=== PATIENT | female | born 1975 | race Caucasian/White ===

== ENCOUNTER 2021-01-13 18:28 | Emergency (ER) | payer OTHER, SELFPAY ==
[2021-01-13 19:08] VITALS: BP 181/77; PULSE 71; RESP 20; TEMP 36.5; O2SAT 98; BMI 54.5
--- NOTE | 2021-01-13 19:57 | PC.NURSE ---
MAHI WRAP APPLIED TO L ANKLE.
--- NOTE | 2021-01-13 20:05 | ED.LOWEXIN ---
HPI - Extremity Injury (Lower) General Chief Complaint: Extremity Injury, Lower Stated Complaint: leg inj Time Seen by Provider: 01/13/21 20:05 Source: patient Mode of arrival: ambulatory Limitations: no limitations History of Present Illness HPI Narrative: Patient is a 45-year-old female with no significant past medical history who presents after hopping backwards on her left foot and experiencing sudden onset of pain. Patient states she is able to gingerly ambulate and she can move her foot but with pain. Patient denies numbness or tingling. She has not tried icing and wrapping it as it just happened today. Related Data Allergies Allergy/AdvReac Type Severity Reaction Status Date / Time Heparin Analogues Allergy Unknown BLOOD Verified 01/13/21 20:16 [HEPARIN AGENTS] CLOT Penicillins [PENICILLINS] Allergy Unknown HIVES Verified 01/13/21 20:16 Review of Systems Review of Systems: Yes all other systems are reviewed and are negative PMFSH Past Medical History Medical History No known health problems Surgical History Hx of cholecystectomy Social History Social History Advance Directives: No Advance Directives Information Provided: Yes Patient : No Physical Exam Vital Signs: Vital Signs: Last Vital Signs Temp 97.7 F 01/13/21 19:08 Pulse 71 01/13/21 19:08 Resp 20 01/13/21 19:08 BP 181/77 H 01/13/21 19:08 Pulse Ox 98 01/13/21 19:08 Body Mass Index 54.5 Const: General: cooperative, healthy appearing, comfortable and no acute distress Nutritional Appearance: obese Orientation/consciousness: patient oriented x3 HENMT: Head: Yes normal to inspection Neck: Neck: Yes normal visual inspection, Yes full ROM and Yes supple Resp: Effort & Inspection: normal respiratory effort and able to speak in complete sentences Neuro: General: patient oriented x3 Extrem: Other: Left foot and ankle NVI, able to flex and extend with pain, patient unable to perform Faust test as her leg kept cramping up, good pedal pulses, no edema, no signs of infection noted General: No no calf tenderness Course Course Course Narrative: 45-year-old female who hospice back at the gym and injured her left calf. It was ambulate gingerly and flex and extend foot however with pain. Will wrap send instructions for RICE and the follow-up with ortho if pain not improving. Will also give crutches for support while ambulating, patient requested crutches over the walker. Patient's blood pressure was elevated upon arrival, recheck was 156/93 likely secondary to pain. Will discharge Discharge Plan Discharge Clinical Impression: Achilles tendinitis, left leg Patient Disposition: Home, Self-Care Instructions: Achilles Tendinitis (ED) Additional Instructions: Please use crutches until you are able to fully bear weight. Please wrap, ice and rest your Achilles tendon. As discussed, if the pain does not improve a little bit each day, please follow-up with orthopedics, I have attached their information to your discharge information. Referrals: Taryn Goodman MD [Physician] - 1 week Interventions: ED Discharge Assessment Last Done: 01/13/21 20:35 Discharge Date/Time: 01/13/21 20:49
== END 2021-01-13 20:49 | disposition home or self-care (01) ==
PROVIDERS: Emergency Provider Internal Medicine; PCP Family Medicine
DX: M76.62 Achilles tendinitis, left leg (principal)
CPT/HCPCS: 99283; 99284

== ENCOUNTER → 2021-01-22 08:06 | Outpatient (BNVA) | payer OTHER, SELFPAY | PROVIDERS: PCP Family Medicine; Visit Provider Physician Assistant ==

== ENCOUNTER → 2021-01-28 07:25 | Outpatient (BNVA) | payer OTHER, SELFPAY | PROVIDERS: PCP Family Medicine; Visit Provider Surgery ==

== ENCOUNTER 2021-01-29 10:19 | Outpatient (REF) | payer OTHER, SELFPAY ==
--- NOTE | ~2021-01-29 | XR_ITS ---
EXAMINATION: XR CHEST 2 VIEWS CLINICAL INFORMATION: Sleep apnea. COMPARISON: None. TECHNIQUE: Frontal and lateral views of the chest were obtained. FINDINGS: The heart, great vessels, pulmonary vasculature and mediastinum are normal. The lungs show no focal infiltrate, effusion or pneumothorax. There is no acute osseous abnormality. XR/XR chest 2V IMPRESSION: No active cardiopulmonary disease.
--- NOTE | 2021-01-29 10:24 | ECG_ITS ---
Test Reason : SLEEP APNEA Blood Pressure : / mmHG Vent. Rate : 067 BPM Atrial Rate : 067 BPM P-R Int : 148 ms QRS Dur : 094 ms QT Int : 414 ms P-R-T Axes : 026 -06 037 degrees QTc Int : 437 ms Normal sinus rhythm Normal ECG No previous ECGs available Referred By: Ezio Erwin Electronically Signed By:RJ FAGAN
[2021-01-29 11:42] LABS: MANUAL DIFF FLAG NO
[2021-01-29 11:51] LABS: Basophils Percent Auto 0.5 % (0-2); Eosinophils Absolute Auto 0.1 X10*3/uL (0.0-0.4); Eosinophils Percent Auto 2.1 % (0-4); Hematocrit 39.5 % (37-47); Hemoglobin 12.9 g/dl (12.0-16.0); Imm Gran Abs Auto 0.01 X10*3/uL (0.00-0.03); Imm Gran Pct Auto 0.2 % (0.0-0.4); Lymphocytes Absolute Auto 1.8 X10*3/uL (1.2-4.9); Lymphocytes Percent Auto 30.1 % (20-40); Mean Corpuscular HGB Conc 32.7 g/dl (31.0-35.0); Mean Corpuscular Hemoglobin 28.4 pg (27.0-33.0); Monocytes Absolute Auto 0.5 X10*3/uL (0.1-1.2); Monocytes Percent Auto 8.5 % (2-11); Neutrophils Absolute Auto 3.4 X10*3/uL (2.0-8.3); Neutrophils Percent Auto 58.6 % (45-73); Platelet Count 308 X10*3/uL (160-400); Red Blood Count 4.54 X10*6/uL (4.20-5.50); Red Cell Distribution Width 13.5 % (11.0-16.0); White Blood Count 5.9 X10*3/uL (4.8-10.8)
[2021-01-29 11:58] LABS: Estimated Average Glucose 105 mg/dL; Hemoglobin A1c % 5.3 %
[2021-01-29 12:10] LABS: Alanine Aminotransferase 23 U/L (0-31); Albumin Level 4.2 g/dL (3.5-5.0); Alkaline Phosphatase 55 U/L (39-117); Anion Gap 12 (12-20); Aspartate Amino Transferase 22 U/L (5-31); Bilirubin Total 0.5 mg/dL (0.0-1.0); Blood Urea Nitrogen 11 mg/dL (9-16); C Reactive Protein 0.61 mg/dL (< or = 0.50); Calcium 9.1 mg/dL (8.4-10.2); Carbon Dioxide 26 mmol/L (22-29); Chloride 107 mmol/L (96-108); Cholesterol 161 mg/dL; Estimated Glomerular Filt Rate > 60; Glucose Random 86 mg/dL (60-115); HDL Cholesterol 39 mg/dL; Iron 116 mcg/dL (30-160); LDL Cholesterol Calculated 105 mg/dl; Percent Iron Saturation 34 % (15-50); Potassium 4.3 mmol/L (3.3-5.1); Sodium 141 mmol/L (135-145); Total Iron Binding Capacity 343 mcg/dL (228-428); Total Protein 7.3 g/dL (6.5-8.0); Triglycerides 88 mg/dL; Unsaturated Iron Binding 227 ug/dL
[2021-01-29 12:33] LABS: Ferritin 126 ng/mL (10-250); TSH reflex Free T4 1.76 uIU/mL (0.32-4.0); Vitamin D 25-OH Total 43.1 ng/mL (>30)
[2021-01-29 12:52] LABS: Folate 15.8 ng/mL (> or = 4.0); Vitamin B12 309 pg/mL (200-900)
[2021-01-30 07:07] LABS: Insulin Level Total 31.3 uIU/mL
[2021-01-31 10:36] LABS: Calcium (PTHI) 9.2 mg/dL (8.6-10.2); PTHI 48 pg/mL (14-64)
[2021-01-31 16:41] LABS: Zinc 67 mcg/dL (60-130)
[2021-02-03 10:17] LABS: Vitamin A 47 mcg/dL (38-98)
[2021-02-03 15:12] LABS: Vitamin B1 10 nmol/L (8-30)
== END 2021-01-29 10:20 | disposition home or self-care (01) ==
LOC: HO.XRAY 10:19
PROVIDERS: PCP Family Medicine; Visit Provider Surgery
DX: E66.01 Morbid (severe) obesity due to excess calories (principal); G47.30 Sleep apnea, unspecified
CPT/HCPCS: 36415; 71046; 80053; 80061; 82306; 82607; 82728; 82746; 83036; 83525; 83540; 83970; 84425; 84443; 84590; 84630; 85025; 86140; 93005

== ENCOUNTER 2021-02-03 08:06 | Outpatient (REF) | payer OTHER, SELFPAY ==
[2021-02-05 13:46] LABS: H Pylori Breath Test NOT DETECTED (NOT DETECTED)
== END 2021-02-03 08:07 | disposition home or self-care (01) ==
LOC: HO.LNP 08:06
PROVIDERS: Surgery; PCP Family Medicine; Visit Provider Physician Assistant
DX: G47.30 Sleep apnea, unspecified (principal); E66.01 Morbid (severe) obesity due to excess calories
CPT/HCPCS: 83013

== ENCOUNTER → 2021-02-17 07:28 | Outpatient (BNVA) | payer OTHER, SELFPAY | PROVIDERS: PCP Family Medicine; Visit Provider Surgery ==

== ENCOUNTER 2021-02-18 09:21 | Outpatient (REF) | payer OTHER, SELFPAY ==
--- NOTE | ~2021-02-18 | FL_ITS ---
EXAMINATION: XR GI SERIES CLINICAL INFORMATION: Obesity COMPARISON: None TECHNIQUE: Upper GI was performed using thin and thick barium and effervescent granules. FINDINGS: Esophageal motility is normal. No hernia or reflux is seen. Stomach is normal-appearing. No fold thickening, mass, ulcer or stricture is seen. FLUOROSCOPY TIME: 0.7 minutes DOSE AREA PRODUCT: 10 comer per centimeter squared. Total dose 42 mgy. 18 saved fluoroscopic images.) FL/FL upper GI series IMPRESSION: Unremarkable examination.
--- NOTE | ~2021-02-18 | US_ITS ---
EXAMINATION: US COMPLETE ABDOMEN WITH LIVER ELASTOGRAPHY CLINICAL INFORMATION: Obesity COMPARISON: Previous CT of the abdomen and pelvis January 2012. TECHNIQUE: Real-time imaging of the abdominal viscera. Noninvasive ultrasound liver fibrosis assessment is performed using Kieran ElastPQ point quantification shear wave elastography (pSWE) with a C5-2 MHz transducer. Multiple elastography samples are obtained. FINDINGS: PANCREAS: The visualized pancreatic head and body are normal in appearance. The remainder of the pancreas is obscured from visualization by the overlying bowel gas. ABDOMINAL AORTA: The proximal and distal aortic segments are normal in caliber. The mid abdominal aorta is not well visualized due to bowel gas. INFERIOR VENA CAVA: Visualized portions are normal. LIVER: Liver echotexture is increased. The liver demonstrates normal size and contour. No focal lesion or intrahepatic biliary duct dilatation. The right lobe measures 16 cm in length. The left lobe measures 10 cm in length. Portal flow is normal/hepatopedal Shear wave liver elastography median stiffness is 1.6 m/s (reference: normal median stiffness is 1.3 m/s or less). IQR/median stiffness to assess sampling precision is 0.2 (reference: good quality data set is IQR/median stiffness of 0.15 or less). GALLBLADDER: Surgically removed. COMMON BILE DUCT: Normal in caliber measuring 0.6 cm in diameter. RIGHT KIDNEY: Normal. No hydronephrosis. No renal calculi or focal parenchymal lesions. The kidney measures 12 cm in maximum dimension. LEFT KIDNEY: Normal. No hydronephrosis. No renal calculi or focal parenchymal lesions. The kidney measures 12 cm in maximum dimension. SPLEEN: Normal. The spleen measures 10.7 cm in maximum dimension. FREE FLUID: None. US/US abdomen comp w elastography IMPRESSION: 1. Impression: Echogenic liver. Limited visualization of the pancreas and aorta. 2. Liver elastography: Slightly limited due to sampling error. In the absence of other known clinical signs, rules out compensated advanced chronic liver disease. REFERENCE: Society of Radiologists in Ultrasound Liver Stiffness Thresholds (2020): LIVER STIFFNESS THRESHOLDS: *Liver Stiffness equal or less than 1.3 m/s: High probability of being normal. *Liver Stiffness less than 1.7 m/s: In the absence of other known clinical signs, rules out compensated advanced chronic liver disease. *Liver Stiffness 1.7-2.1 m/s: Suggestive of compensated advanced chronic liver disease but need further test for confirmation. *Liver Stiffness over 2.1 m/s: Rules in compensated advanced chronic liver disease. *Liver Stiffness over 2.4 m/s: Suggestive of clinically significant portal hypertension. QUALITY OF DATA SET: *IQR/Median value equal or less than 0.15 implies a quality data set. *IQR/Median value over 0.15 implies a poor quality data set. SIGNIFICANT CHANGE FROM PRIOR EXAM: Significant change if liver stiffness measurement is 10% or greater from prior exam. OTHER CONSIDERATIONS: The stage of liver fibrosis may be overestimated in the setting of acute hepatitis, liver inflammation, elevated liver function tests, hepatic vascular congestion, obstructive cholestasis, non-fasting state, and infiltrative diseases such as amyloidosis and lymphoma. In some patients with NAFLD, the liver stiffness thresholds for compensated advanced chronic liver disease may be lower. In causes other than viral hepatitis and NAFLD, liver stiffness thresholds are not well established.
== END 2021-02-18 09:22 | disposition home or self-care (01) ==
LOC: HO.US 09:21
PROVIDERS: Visit Provider Surgery
DX: Z01.818 Encounter for other preprocedural examination (principal); E66.01 Morbid (severe) obesity due to excess calories; K21.9 Gastro-esophageal reflux disease without esophagitis; G47.30 Sleep apnea, unspecified
CPT/HCPCS: 74240; 76705; 76981

== ENCOUNTER → 2021-02-23 08:10 | Outpatient (BNVA) | payer OTHER, SELFPAY | PROVIDERS: PCP Family Medicine; Visit Provider Dietitian, Registered | DX: E66.01 Morbid (severe) obesity due to excess calories (principal); Z68.43 Body mass index [BMI] 50.0-59.9, adult | CPT/HCPCS: 97802 ==

== ENCOUNTER → 2021-03-27 07:31 | Outpatient (BNVA) | payer OTHER, SELFPAY | PROVIDERS: PCP Family Medicine; Visit Provider Surgery ==

== ENCOUNTER → 2021-04-24 13:24 | Outpatient (BNVA) | payer OTHER, SELFPAY | PROVIDERS: PCP Family Medicine; Visit Provider Physician Assistant ==

== ENCOUNTER → 2021-05-04 07:09 | Outpatient (BNVA) | payer OTHER, SELFPAY | PROVIDERS: PCP Family Medicine; Visit Provider Surgery ==

== ENCOUNTER 2021-05-12 06:13 | Inpatient (IN) | payer OTHER, SELFPAY ==
[2021-05-01 10:13] VITALS: BMI 49.5
--- NOTE | 2021-05-04 13:24 | HO.ANESPROP2 ---
HPI - Anesthesia Eval Consult details Narrative: 46 yo female patient for EGD, Sleeve gastrectomy PMFSH Active Problems Active Problems: All Active Problems (Updated 05/01/21 @ 10:09 by Charisse Rasmussen RN) Obesity (Acute) Vitamin B12 deficiency (Acute) MDD (major depressive disorder), recurrent episode, mild (Acute) Steatosis, liver (Acute) Knee pain (Acute) Sleep apnea with use of continuous positive airway pressure (CPAP) (Acute) Morbid obesity (Acute) Past Medical History Medical History Anemia COVID-19 vaccine series completed Depression Hx pulmonary embolism Jaw anomaly Knee pain Morbid obesity PCOS (polycystic ovarian syndrome) Sleep apnea with use of continuous positive airway pressure (CPAP) Steatosis, liver Family History Family History (Updated 01/22/21 @ 08:30 by LUCILA Forde) Mother No problems noted. Father Diabetes Hypertension Hyperlipidemia Sister No problems noted. Sister No problems noted. Sister No problems noted. Sister Acute Crohn's disease Sister No problems noted. Family history of problems with anesthesia: No Surgical History Surgical History (Updated 05/04/21 @ 13:28 by Charisse Rasmussen RN) History of inferior vena caval filter placement History of mandibular surgery Hx of cholecystectomy Hx of colonoscopy Hx of excision of mass Hx of oral surgery History of Problems with Anesthesia: Yes (H/o awake fiberoptic intubations in the past. States not for recent sugeries. Will obtain anesthesia records for recent surgeries) Social History Social History (Updated 01/22/21 @ 08:31 by LUCILA Forde) Are you a primary palliative care coordinator to a significant other at home: No Do you presently have visiting nurse or other home services: No Alcohol intake: current Alcohol intake frequency: does not drink Patient Tobacco Use Status: Never used Tobacco Meds Allergies Allergy/AdvReac Type Severity Reaction Status Date / Time Heparin Analogues Allergy Severe patient Verified 05/04/21 12:48 [HEPARIN AGENTS] states was told heparin caused a blood clot Penicillins [PENICILLINS] Allergy Intermediate HIVES Verified 05/04/21 12:48 Home Medications Medication Instructions Recorded Confirmed Last Taken Type citalopram 20 mg tablet 20 mg PO DAILY 01/22/21 05/04/21 Unknown History norethindrone acetate 5 mg tablet 5 mg PO BEDTIME 01/22/21 05/04/21 Unknown History cetirizine 10 mg capsule (Zyrtec) 10 mg PO DAILY 01/28/21 05/04/21 Unknown History cholecalciferol (vitamin D3) 10 10 mcg PO DAILY 01/28/21 05/04/21 Unknown History mcg (400 unit) tablet docusate sodium 100 mg capsule 100 mg PO DAILY 01/28/21 05/04/21 Unknown History (Stool Softener) magnesium 200 mg tablet 200 mg PO DAILY 01/28/21 05/04/21 Unknown History mecobalamin (vitamin B12) 5,000 5,000 mcg PO DAILY 01/28/21 05/04/21 Unknown History mcg lozenge Exam Exam Date and Time: May 04, 2021 132 Height,Weight and Vital Signs: Height 5 ft 10 in Weight 156.489 kg Narrative Narrative: Several jaw surgeries, metal plate in jaw, s/p tracheostomy tube, slight deviation of oral cavity to one side, minimal limitation of jaw movement, ?? abnormal anatomy Airway Mallampati Class: III TM Dist: >3cm Neck ROM: Full Denture: Lower Heart: RRR Lungs: CTAB Assessment and Plan Assessment Anesthesia Assessment: Anesthesia Plan Discussed and Chart Reviewed Final Anesthetic Review Family History of Problems with Anesthesia: No History of Problems with Anesthesia: Yes (H/o awake fiberoptic intubations in the past. States not for recent sugeries. Will obtain anesthesia records for recent surgeries) ASA Class: III Patient Risk: Intermediate Procedure Risk: Intermediate Assessment/Block/Sedation in SS: Assess/Block/Sedation-SS Anesthetic Plan Anesthetic Plan: GA Disposition: Standard PACU and Inp. Admit - Standard Bed
[2021-05-06 08:42] LABS: MANUAL DIFF FLAG NO
[2021-05-06 08:48] LABS: Basophils Percent Auto 0.5 % (0-2); Eosinophils Absolute Auto 0.2 X10*3/uL (0.0-0.4); Eosinophils Percent Auto 2.3 % (0-4); Hematocrit 42.1 % (37-47); Hemoglobin 14.2 g/dl (12.0-16.0); Imm Gran Abs Auto 0.01 X10*3/uL (0.00-0.03); Imm Gran Pct Auto 0.2 % (0.0-0.4); Lymphocytes Absolute Auto 1.4 X10*3/uL (1.2-4.9); Mean Corpuscular HGB Conc 33.7 g/dl (31.0-35.0); Mean Corpuscular Hemoglobin 28.8 pg (27.0-33.0); Mean Corpuscular Volume 85.4 fL (80-98); Mean Platelet Volume 10.4 fL (9.4-12.3); Monocytes Absolute Auto 0.5 X10*3/uL (0.1-1.2); Monocytes Percent Auto 8.1 % (2-11); Neutrophils Absolute Auto 4.3 X10*3/uL (2.0-8.3); Neutrophils Percent Auto 66.9 % (45-73); Platelet Count 306 X10*3/uL (160-400); Red Blood Count 4.93 X10*6/uL (4.20-5.50); Red Cell Distribution Width 12.9 % (11.0-16.0); White Blood Count 6.4 X10*3/uL (4.8-10.8)
[2021-05-06 08:50] LABS: INTERNATIONAL NORM RATIO 1.2 (0.9-1.1); Prothrombin Time 13.7 SEC (9.9-13.0)
[2021-05-06 08:53] LABS: Partial Thromboplastin Time 32.9 SEC (24.1-38.0)
[2021-05-06 09:04] LABS: Alanine Aminotransferase 32 U/L (0-31); Albumin Level 4.4 g/dL (3.5-5.0); Alkaline Phosphatase 73 U/L (39-117); Anion Gap 13 (12-20); Aspartate Amino Transferase 24 U/L (5-31); Bilirubin Total 0.8 mg/dL (0.0-1.0); Blood Urea Nitrogen 12 mg/dL (9-16); C Reactive Protein 0.64 mg/dL (< or = 0.50); Calcium 9.7 mg/dL (8.4-10.2); Carbon Dioxide 25 mmol/L (22-29); Chloride 105 mmol/L (96-108); Cholesterol 162 mg/dL; Creatinine Clr Calc Pharmacy 138.4; Estimated Glomerular Filt Rate > 60; Glucose Random 99 mg/dL (60-115); HDL Cholesterol 34 mg/dL; LDL Cholesterol Calculated 110 mg/dl; Sodium 139 mmol/L (135-145); Total Protein 7.9 g/dL (6.5-8.0); Triglycerides 90 mg/dL
[2021-05-06 09:07] LABS: Estimated Average Glucose 97 mg/dL
[2021-05-06 09:26] LABS: TSH reflex Free T4 1.29 uIU/mL (0.32-4.0)
[2021-05-07 09:26] LABS: Insulin Level Total 32.4 uIU/mL
--- NOTE | 2021-05-11 23:18 | MHC.SHP ---
Pre-Procedural Eval Section A Date of Service: 05/11/21 The patient is an INPATIENT: Yes The History & Physical has been completed within 30 days and I have reviewed it.: Yes Section B Chief Complaint: morbid obesity Relevant Family History (Specify if Yes): No Relevant Social History: None Present Medications: see Short Stay Collaborative assessment Medical History: No relevant PMH History of Previous Operations: No relevant previous surgery Allergies: Allergies Allergy/AdvReac Type Severity Reaction Status Date / Time Heparin Analogues Allergy Severe patient Verified 05/04/21 12:48 [HEPARIN AGENTS] states was told heparin caused a blood clot Penicillins [PENICILLINS] Allergy Intermediate HIVES Verified 05/04/21 12:48 Review of Systems Sugical H&P ROS: Negative: Constitution, Cardiovascular, Respiratory, Neurological, Psychiatric, Hem-Onc, Allergic/Immunologic, Gastrointestinal, Genitourinary, Musculoskeletal, Integumentary, Endocrine and Eyes/Ears/Nose/Throat Exam Surgical H&P Exam: Normal: HEENT, Normal: Heart, Normal: Lungs, Normal: Extremities, Normal: Abdomen, Normal: Skin and Normal: Neurological Plan Diagnosis/Plan: Unchanged I have reviewed the history and physical and performed a pertinent physical examination on my patient. No changes have occurred unless specified.
[2021-05-12] VITALS (16 sets, daily range): BP systolic 119–151; BP diastolic 63–88; PULSE 53–79; RESP 16–18; TEMP 36.1–36.6; O2SAT 93–98
[2021-05-12 06:38] LABS: UPreg QC Valid YES; Urine Pregnancy NEGATIVE (NEGATIVE)
[2021-05-12 06:49] LABS: COVID-19 Test Negative (Negative); IDNOW Serial# 9DD0AD1C
[2021-05-12] MEDS: Lactated Ringers 1,000 ML 999 ML IV (06:49)
[2021-05-12] MEDS: Lactated Ringers 1,000 ML 100 ML IVCONT (06:49)
[2021-05-12] MEDS: levoFLOXacin/D5W 500 MG/100 ML PIGGYBACK 100 MG IV (06:50)
--- NOTE | 2021-05-12 07:24 | P.CONAN_ITS ---
[facility] Active Problems Active Problems: All Active Problems (Updated 05/01/21 @ 10:09 by Charisse aguillon RN) Obesity (Acute) Vitamin B12 deficiency (Acute) MDD (major depressive disorder), recurrent episode, mild (Acute) Steatosis, liver (Acute) Knee pain (Acute) Sleep apnea with use of continuous positive airway pressure (CPAP) (Acute) Morbid obesity (Acute) Past Medical History Medical History Anemia COVID-19 vaccine series completed Depression Hx pulmonary embolism Jaw anomaly Knee pain Morbid obesity PCOS (polycystic ovarian syndrome) Sleep apnea with use of continuous positive airway pressure (CPAP) Steatosis, liver Family History Family History (Updated 01/22/21 @ 08:30 by LUCILA Forde) Mother No problems noted. Father Diabetes Hypertension Hyperlipidemia Sister No problems noted. Sister No problems noted. Sister No problems noted. Sister Acute Crohn's disease Sister No problems noted. Family history of problems with anesthesia: No Surgical History Surgical History (Updated 05/04/21 @ 13:28 by Charisse Rasmussen RN) History of inferior vena caval filter placement History of mandibular surgery Hx of cholecystectomy Hx of colonoscopy Hx of excision of mass Hx of oral surgery History of Problems with Anesthesia: Yes (H/o awake fiberoptic intubations in the past. States not for recent sugeries. Will obtain anesthesia records for recent surgeries) Social History Social History (Updated 01/22/21 @ 08:31 by LUCILA Forde) Are you a primary director of home care hospice to a significant other at home: No Do you presently have visiting nurse or other home services: No Alcohol intake: current Alcohol intake frequency: does not drink Patient Tobacco Use Status: Never used Tobacco Use of substances other than those prescribed or required for medical reasons: Yes Substance Use Frequency: Daily Have you been hit, kicked, punched, or otherwise hurt by someone within the past year? If so, by whom?: No Are you DNR?: No Advance Directives: No Advance Directives Information Provided: Yes (states does not have a HCP-is ) Advance Directives on File: No Recently lost weight without trying: No Eating poorly because of decreased appetite: No Nutrition Risks: No Nutritional Risk Patient : No FDLMP: N/A-takes BCP daily : No Poor oral hygiene: No (lower full implants) Meds Allergies Allergy/AdvReac Type Severity Reaction Status Date / Time Heparin Analogues Allergy Severe patient Verified 05/04/21 12:48 [HEPARIN AGENTS] states was told heparin caused a blood clot Penicillins [PENICILLINS] Allergy Intermediate HIVES Verified 05/04/21 12:48 Home Medications Medication Instructions Recorded Confirmed Last Taken Type citalopram 20 mg tablet 20 mg PO DAILY 01/22/21 05/04/21 05/12/21 History norethindrone acetate 5 mg tablet 5 mg PO BEDTIME 01/22/21 05/04/21 Unknown History cetirizine 10 mg capsule (Zyrtec) 10 mg PO DAILY 01/28/21 05/04/21 Unknown History cholecalciferol (vitamin D3) 10 10 mcg PO DAILY 01/28/21 05/04/21 Unknown History mcg (400 unit) tablet docusate sodium 100 mg capsule 100 mg PO DAILY 01/28/21 05/04/21 Unknown History (Stool Softener) magnesium 200 mg tablet 200 mg PO DAILY 01/28/21 05/04/21 Unknown History Exam Exam Date and Time: May 12, 2021 0724 Height,Weight and Vital Signs: Height 5 ft 10 in Weight 156.489 kg Last Vital Signs Temp 98 F 05/12/21 06:27 Pulse 74 05/12/21 06:27 Resp 18 05/12/21 06:27 BP 151/88 H 05/12/21 06:27 Pulse Ox 95 05/12/21 06:27 Pertinent Lab Results Pertinent Lab Results: Laboratory Tests 05/06/21 05/06/21 05/06/21 08:25 08:25 08:25 WBC 6.4 RBC 4.93 Hgb 14.2 Hct 42.1 MCV 85.4 MCH 28.8 MCHC 33.7 RDW 12.9 Plt Count 306 MPV 10.4 Immature Gran % (Auto) 0.2 Neut % (Auto) 66.9 Lymph % (Auto) 22.0 Campbell % (Auto) 8.1 Eos % (Auto) 2.3 Baso % (Auto) 0.5 Lymph # (Auto) 1.4 Campbell # (Auto) 0.5 Eos # (Auto) 0.2 Baso # (Auto) 0.0 Abs Immat Gran (auto) 0.01 Absolute Neuts (auto) 4.3 Absolute Nucleated RBC 0.000 Nucleated RBC % (auto) 0.0 PT 13.7 H INR 1.2 H APTT 32.9 Sodium 139 Potassium 4.0 Chloride 105 Carbon Dioxide 25 Anion Gap 13 BUN 12 Creatinine 0.84 Estim Creat Clear Calc 138.4 Estimated GFR > 60 Random Glucose 99 Estimat Average Glucose Hemoglobin A1c % Total Insulin Calcium 9.7 D Total Bilirubin 0.8 AST 24 ALT 32 H Alkaline Phosphatase 73 D C-Reactive Protein 0.64 H Total Protein 7.9 Albumin 4.4 Triglycerides 90 Cholesterol 162 LDL Cholesterol, Calc 110 HDL Cholesterol 34 TSH 1.29 Urine Test COVID-19 ([facility]) COVID-19 [facility] Blood Type Antibody Screen 05/06/21 05/06/21 05/06/21 08:25 08:25 08:25 WBC RBC Hgb Hct MCV MCH MCHC RDW Plt Count MPV Immature Gran % (Auto) Neut % (Auto) Lymph % (Auto) Campbell % (Auto) Eos % (Auto) Baso % (Auto) Lymph # (Auto) Campbell # (Auto) Eos # (Auto) Baso # (Auto) Abs Immat Gran (auto) Absolute Neuts (auto) Absolute Nucleated RBC Nucleated RBC % (auto) PT INR APTT Sodium Potassium Chloride Carbon Dioxide Anion Gap BUN Creatinine Estim Creat Clear Calc Estimated GFR Random Glucose Estimat Average Glucose 97 Hemoglobin A1c % 5.0 Total Insulin 32.4 H Calcium Total Bilirubin AST ALT Alkaline Phosphatase C-Reactive Protein Total Protein Albumin Triglycerides Cholesterol LDL Cholesterol, Calc HDL Cholesterol TSH Urine Test COVID-19 ([facility]) COVID-19 [facility] Blood Type B Positive Antibody Screen NEGATIVE 05/12/21 05/12/21 06:08 06:08 WBC RBC Hgb Hct MCV MCH MCHC RDW Plt Count MPV Immature Gran % (Auto) Neut % (Auto) Lymph % (Auto) Campbell % (Auto) Eos % (Auto) Baso % (Auto) Lymph # (Auto) Campbell # (Auto) Eos # (Auto) Baso # (Auto) Abs Immat Gran (auto) Absolute Neuts (auto) Absolute Nucleated RBC Nucleated RBC % (auto) PT INR APTT Sodium Potassium Chloride Carbon Dioxide Anion Gap BUN Creatinine Estim Creat Clear Calc Estimated GFR Random Glucose Estimat Average Glucose Hemoglobin A1c % Total Insulin Calcium Total Bilirubin AST ALT Alkaline Phosphatase C-Reactive Protein Total Protein Albumin Triglycerides Cholesterol LDL Cholesterol, Calc HDL Cholesterol TSH Urine Test NEGATIVE COVID-19 ([facility]QUELIN) Negative COVID-19 Clin Com See Note Blood Type Antibody Screen Airway Mallampati Class: III (Small mouth; jaw opens asymmetrically) TM Dist: >3cm Neck ROM: Full Denture: Lower Loose/Missing/Broken Teeth: Yes and Lower (Posts lower jaw onto which lower denture snaps) Heart: RRR Lungs: CTA Assessment and Plan Assessment Anesthesia Assessment: Anesthesia Plan Discussed and Chart Reviewed Final Anesthetic Review Family History of Problems with Anesthesia: No History of Problems with Anesthesia: Yes (H/o awake fiberoptic intubations in the past. States not for recent sugeries. Will obtain anesthesia records for recent surgeries) NPO: Yes ASA Class: III Final Preanesthetic Review: Meds/Allgs Chart Reviewed, Consent Obtained/Reviewed and Anes Risks/Benef Reviewed Patient Risk: Intermediate Procedure Risk: Intermediate Anesthetic Plan Anesthetic Plan: GA Disposition: Standard PACU
--- NOTE | 2021-05-12 10:00 | P.DS_ITS ---
DS: Providers Provider Date of Service: 05/13/21 Date of admission: 05/12/21 06:13 Primary care physician: Fausto Smith MD DS: Summary Hospital Course Hospital Course: ADMITTING DIAGNOSIS: morbid obesity, PCOS, JAKE, history of PE DISCHARGE DIAGNOSIS: same, s/p laparoscopic sleeve gastrectomy and repair diaphragmatic hernia PAST SURGICAL HISTORY: lap britton, mandibular surgery PROCEDURE: upper endoscopy, laparoscopic sleeve gastrectomy DISCHARGE SUMMARY: History of Present Illness: The patient is a 46 year-old woman with a BMI of 58.6 kg/m2 and associated co- morbidities as described above. The patient had extensive work-up,lost 50.4 lbs preoperatively and was electively scheduled for laparoscopic, possible open sleeve gastrectomy and gastropexy. Risks and complications of the surgery were discussed with the patient in advance, particularly the possibility of , pulmonary embolism, anastomotic leak, bleeding, bowel injury, GERD, cardiac, r enal or pulmonary complications. The patient understood all the risks and was in agreement with the surgical plan. Hospital Course: The patient underwent an uneventful laparoscopic sleeve gastrectomy with gastropexy on the day of admission. Postoperatively, the patient was transferred to the surgical floor. The patient received IV Acetaminophen and IV dilaudid for pain control. Patient was started on bariatric phase 1 diet POD #0. On postoperative day one, the patient was feeling well without nausea, vomiting, fevers, or tachycardia. The patient had some mild incisional pain and the abdomen was soft. On the morning of postoperative day one, the patient was continued on 1 ounce of water or ice every half hour. During the day, the patient did fairly well, having some incisional pain, but able to ambulate adequately and to tolerate liquids well. Since the patient is doing well, we decided that the patient was ready to be discharged. The patient was given instructions to follow-up with me next week and to call my office for any fever over 101, persistent abdominal pain, nausea, vomiting, GERD, symptoms of DVT such as calf tenderness, or leg swelling, or pulmonary embolism such as chest pain or shortness of breath. The patient was also instructed to drink 40-60 ounces of liquids per day using the 1-ounce cups. The patient had been given prescriptions for Tylenol for pain, Zofran prn for nausea, and pantoprazole and carafate previously. The patient was encouraged to ambulate and use the incentive spirometer. The patient was allowed to shower, but no baths, and encouraged to stay active at home. All of these instructions were given to the patient personally. All questions were answered and the patient understood all instructions, the instructions were also given to the patient in print. Time Spent with Patient Time attestation: Total time spent providing and/or coordinating discharge services: Discharge coordination time: Less than 30 minutes Quality: Stroke Does the patient have a stroke diagnosis?: No Physical Exam Vital Signs: Vital Signs: Last Vital Signs Temp 98 F 05/12/21 06:27 Pulse 74 05/12/21 06:27 Resp 18 05/12/21 06:27 BP 151/88 H 05/12/21 06:27 Pulse Ox 95 05/12/21 06:27 Body Mass Index 49.5 DS: Data Data Completed and Pending Pending studies at discharge: Pending at discharge 05/12/21 09:06 Surgical [PTH] Routine Labs on day of discharge: Laboratory Results - last 24 hr 05/12/21 05/12/21 06:08 06:08 Urine Test NEGATIVE COVID-19 (JAQUELIN) Negative COVID-19 Clin Com See Note Discharge Plan Discharge Anticipated Discharge Date/Time: 05/13/21 10:58 Patient Disposition: Home, Self-Care Discharge Diagnosis: s/p sleeve gastrectomy Referrals: Fausto Smith MD [Primary Care Provider] - 1 Week Discharge Medications: Continued citalopram 20 mg tablet 20 mg PO DAILY RF: 0 pantoprazole 40 mg tablet,delayed release (DR/EC) 40 mg PO DAILY Qty: 30 RF: 2 sucralfate 100 mg/mL suspension 10 ml PO BID Qty: 400 RF: 2 ondansetron HCl [Zofran] 4 mg tablet 4 mg PO Q12H Qty: 20 RF: 0 Zyrtec 10 mg capsule 10 mg PO DAILY RF: 0 docusate sodium [Stool Softener] 100 mg capsule 100 mg PO DAILY RF: 0 Held norethindrone acetate 5 mg tablet 5 mg PO BEDTIME RF: 0 Hold Instructions: Discuss when to restart with Dr Erwin Discontinued mecobalamin (vitamin B12) 1,000 mcg tablet,disintegrating 1,000 mcg sublingual DAILY Qty: 30 RF: 2 magnesium 200 mg tablet 200 mg PO DAILY RF: 0 cholecalciferol (vitamin D3) 10 mcg (400 unit) tablet 10 mcg PO DAILY RF: 0 Discharge Orders: Discharge Order (Routine); Ordered 05/13/21 Ordered By: Ezio Erwin Diet: other Activity on Discharge: No heavy lifting Stand Alone Forms: Patient Portal Discharge page Care Plan Goals: weight loss Health Concerns: morbid obesity Plan of Treatment: No tub baths, sex or returning to work until discussed at first post op appointment. No exercise, alcohol, tobacco or illegal drug use. Continue to use incentive spirometer hourly while awake. Walk in home for 5- 10 minutes every 2 hours during the first week. Continue phase 1 diet today and start phase 2 diet tomorrow morning. Follow all instructions in the bariatric handbook and call with any questions. The patient's medical history has been reviewed and they are considered low risk for post op DVT and therefore DVT prophylaxis is not considered necessary. Travel after surgery was reviewed. The patient has not disclosed any travel plans during the first 30 days after surgery and they have been advised that within the first 30 days after surgery any bus, plane, train or car travel over 2 hours in duration is contraindicated due to the possibility of developing blood clots from immobility. Any travel, needs to include periods of ambulation of 10 minutes in duration every 2 hours. The patient was instructed to discuss any plans for travel during this period with their bariatric surgeon. Assessment: stable, s/p sleeve gastrectomy
--- NOTE | 2021-05-12 10:03 | P.BOP_ITS ---
Brief Operative Note Date of Service: 05/12/21 Pre-op diagnosis: Morbid obesity with comorbidities (see below) Post-op diagnosis: same Procedure: INITIAL PATIENT BMI ON PRESENTATION AT OUR OFFICE: 58.6 kg/m2 LAST BMI BEFORE SURGERY: 51.6 kg/m2 COMORBIDITIES: sleep apnea, depression, dysmenorrhea, juvenille fibroma, knee pain, liver steatosis, liver fibrosis The patient participated in an intensive weekly lifestyle ?intervention and exer cise program during which the patient ?has lost between the initial office visit and the last preoperative visit 50.4lbs, or 12.89% of initial actual body weight. The patient met the BMI-criteria for bariatric surgery based on the BMI on initial presentation. The patient should not be penalized for achieving such weight loss because ?it is not sustainable long-term without surgical intervention and it was achieved in preparation for bariatric surgery ?under my direction and based on my published research ([email or web address] and? [email or web address]/pdf ) ?that a 10% preoperative weight loss improves long-term weight loss after surgery and reduces perioperative complications.? Insurance carriers such as [facility] have endorsed my recommendations ?and have included in their policies criteria to include a 10% preoperative weight loss requirement. PROCEDURE: Esophago-gastroscopy, laparoscopic sleeve gastrectomy and laparoscopic gastropexy INDICATIONS: This is a 46 year-old female who was electively scheduled for laparoscopic, possibly open sleeve gastrectomy. The risks and complications of the procedure were discussed with the patient in advance, particularly the possibility of ; pulmonary embolism; staple line leak; bleeding; GERD; cardiac, pulmonary, or renal complications; as well as long-term problems such as insufficient weight loss, vitamin deficiency, strictures, or ulcers. The patient understood all the risks, and was in agreement to proceed with surgery. DESCRIPTION OF PROCEDURE: After informed consent was obtained from the patient, the patient was given preoperative antibiotics, and was transferred to the operating room. After successful induction of general anesthesia, pneumatic compressive devices were placed on both lower extremities. An upper endoscopy was performed next. The oropharynx and esophagus appeared to be within normal limits. There was no diaphragmatic hernia present consistent with the findings of the preoperative upper GI. The stomach was entered. Then after all fluid and air were suctioned and the stomach was fully decompressed, the scope was withdrawn and secured in the mid esophagus. The patient was then prepped and draped in the usual sterile manner, and abdominal access was established at the right upper quadrant with the Shawn technique. A 12 mm blunt port was inserted, and the abdomen was insufflated with CO2 to a pressure of 15 mmHg. Under direct visualization, additional ports were placed, specifically two 5 mm Versi-step ports to the left upper quadrant, and a 5 mm Versi-Step port to the right upper quadrant. 1% lidocaine plain was used to infiltrate all port sites as well as all fascia defects. Following that, the patient was placed in a steep reverse Trendelenburg position. An additional 5 mm port was placed to the right flank for the Mediflex retractor that was used to retract the left lobe of the liver. The gastro-esophageal fat pad was opened with the ultrasonic device (Thunderbeat, Olympus) and the anterior esophagus and hiatus were exposed. The angle of His was opened with the ultrasonic device the fundus of the stomach from any diaphragmatic and splenic attachments. I then opened the gastrocolic ligament between the transverse colon and the greater curvature of the stomach with the ultrasonic device to enter the lesser sac and facilitate the ligation of the short gastric vessels. I started at a mid-point along the greater curvature and using the Thunderbeat, all short gastric vessels were divided all the way to the angle of His until the left anthony was completely dissected at its entirety. I then divided the gastro-colic ligament distally to a distance of about 3-4 cm proximal to the esophagus. The stomach was then divided transversely with one Endo DAV-45 purple, two DAV- 45 orange and four DAV-60 articulating orange loads using the AEON stapler and loads. Every effort was made that the gastric sleeve had a tubular shape and an even caliber throughout. Once the sleeve resection was completed, the staple line of the gastric sleeve was reinforced with Hemoclips. The resected stomach was retrieved without difficulty from the Shawn port. A gastropexy was then performed in order to prevent postoperative GERD and partial gastric volvulus. Several interrupted 2.0 Surgidac sutures were placed between the sleeve's staple line and the previously divided greater omentum and gastro-colic ligament using the Endo-Stitch device. ?An upper endoscopy was performed. There was no narrowing at the GE junction. The scope was easily advanced all the way to the pylorus which was clearly visualized. There was no narrowing anywhere and the sleeve's caliber was even throughout. The sleeve's staple line was inspected and there was no evidence of ischemia, bleeding or dehiscence. At that point the gastroscope was withdrawn from the patient?s mouth while we were decompressing the bowel and the stomach from any remaining air. I looked into the lesser sac to see how the sleeve was situating and it was situating well. There was no bleeding from the staple line, spleen, or short gastric vessels. The Mediflex retractor was removed, and the undersurface of the liver was inspected and there was no bleeding. The patient was placed in supine position. I closed the fascial defect of the 12 mm port site with a figure of eight #1 Polysorb suture. Then 100 cc 0.25 % Marcaine plain with 10 mg of Dexamethasone were used to infiltrate the fascial closure as well as all skin incisions. At this point, the abdomen was deflated, all ports were removed under direct vision, and no bleeding was noted from any of the port sites. The skin incisions were irrigated with saline and were closed with 4-0 absorbable monofilament sutures. Steri-Strips and OpSites were used to cover all incisions. The patient was extubated and was transferred in stable condition to the recovery room for further care. I was present and performed all rivera parts of the procedure. Scales was the first press operator. There were no residents to assist with this case. Pradeep Erwin MD, PhD, FACS Surgeon: Ezio Erwin MD Anesthesia: GETA, local and other (TAP block) Was an Hog Ringer used for this Procedure?: Yes Hog Ringer: Shelli Scales Estimated blood loss (mL): 10 IV fluids (mL): 2,000 Urine output (mL): 0 (No Leung to record) Pathology: other (Stomach) Condition: stable Disposition: PACU
--- NOTE | 2021-05-12 10:07 | PM.PNGS ---
Subjective Subjective Date of Service: 05/13/21 Interval history: Patient has mild incisional pain, but was able to ambulate and use the incentive spirometer. She is tolerating phase 1 bariatric diet Physical Exam Vital Signs: Vital Signs: Last Vital Signs Temp 97.1 F 05/12/21 09:56 Pulse 71 05/12/21 10:03 Resp 16 05/12/21 10:03 BP 139/79 05/12/21 10:03 Pulse Ox 94 05/12/21 10:03 Body Mass Index 49.5 GI: Inspection: Yes normal to inspection and Yes incision (clean, dry and intact) Extrem: Right lower extremity: normal to inspection (no calf tenderness) Left lower extremity: normal to inspection (no calf tenderness) Procedures Date of Service Date of Service: 05/13/21 Progress Note: A&P Assessment and plan (1) S/P laparoscopic sleeve gastrectomy: Status: Acute Assessment and Plan: s/p laparoscopic sleeve gastrectomy and gastropexy Doing well Check am labs. If OK, will discharge home (2) Morbid obesity: Status: Acute (3) Sleep apnea with use of continuous positive airway pressure (CPAP): Status: Acute (4) Knee pain: Status: Acute (5) Steatosis, liver: Status: Acute (6) PCOS (polycystic ovarian syndrome): Status: Acute (7) Liver fibrosis: Status: Acute (8) Jaw anomaly: Status: Acute (9) Hx pulmonary embolism: Status: Acute Fall Risk Details Current Medications: Current Medications Generic Name Dose Route Start Last Admin Trade Name Freq PRN Reason Stop Dose Admin Albuterol Sulfate 2.5 mg 05/12/21 08:02 Albuterol Sulfate (0.083%) 2.5 Mg/3 Ml Vial.Neb INHALE ONCE PRN Wheezing Fentanyl 50 mcg 05/12/21 08:02 Fentanyl Citrate/Pf 100 Mcg/2 Ml Vial IVPUSH Q5M PRN Pain, Severe (Pain Scale 7-10) Protocol Fentanyl 25 mcg 05/12/21 08:02 Fentanyl Citrate/Pf 100 Mcg/2 Ml Vial IVPUSH Q5M PRN Pain, Moderate (Pain Scale 4-6 Protocol Hydromorphone HCl 0.5 mg 05/12/21 08:02 Hydromorphone Hcl 0.5 Mg/0.5 Ml Syringe IVPUSH Q5M PRN Pain, Severe (Pain Scale 7-10) Protocol Hydromorphone HCl 0.25 mg 05/12/21 08:02 Hydromorphone Hcl 0.5 Mg/0.5 Ml Syringe IVPUSH Q5M PRN Pain, Severe (Pain Scale 7-10) Protocol Promethazine HCl 12.5 mg/ 50.5 mls @ 202 mls/hr 05/12/21 08:02 Sodium Chloride IV ONCE PRN Nausea and Vomiting Ondansetron HCl 4 mg 05/12/21 08:02 Ondansetron Hcl 4 Mg/2 Ml Vial IVPUSH ONCE PRN Nausea and Vomiting Oxycodone HCl 10 mg 05/12/21 08:02 Oxycodone Hcl Immed Release 5 Mg Tablet PO ONCE PRN Pain, Severe (Pain Scale 7-10) Oxycodone HCl 5 mg 05/12/21 08:02 Oxycodone Hcl Immed Release 5 Mg Tablet PO ONCE PRN Pain, Severe (Pain Scale 7-10) Time Spent With Patient Time: Total time spent is greater than 50% in coordination of care (as documented) at patient's floor/unit and/or counseling patient: Time with patient: less than 15 minutes Quality Stroke Does the patient have a stroke diagnosis?: No VTE Prior VTE?: Yes Approximate Date of Prior VTE: 09/05/02 VTE Risk Level:: Surgical - moderate VTE Device Contraindication: N/A - Device Ordered VTE Drug Contraindication: Treatment Not Indicated
[2021-05-12] MEDS: Famotidine/PF 20 MG/2 ML VIAL IVPUSH ×2 (10:45→20:41)
[2021-05-12] MEDS: Metoclopramide HCl 10 MG/2 ML VIAL IVPUSH (10:47)
[2021-05-12 10:56] LABS: Hematocrit 40.9 % (37-47); Hemoglobin 13.7 g/dl (12.0-16.0)
[2021-05-12] MEDS: Lactated Ringers 1,000 ML 125 ML IVCONT ×2 (11:06→18:41)
[2021-05-12 11:15] LABS: Anion Gap 11 (12-20); Blood Urea Nitrogen 9 mg/dL (9-16); Carbon Dioxide 25 mmol/L (22-29); Chloride 107 mmol/L (96-108); Creatinine Clr Calc Pharmacy 140.1; Estimated Glomerular Filt Rate > 60; Glucose Random 146 mg/dL (60-115); Potassium 3.7 mmol/L (3.3-5.1); Sodium 139 mmol/L (135-145)
[2021-05-12] MEDS: 0.9 % Sodium Chloride Flush 3 ML SYRINGE IVFLUSH (15:45)
[2021-05-12] MEDS: ondansetron HCL 4 MG/2 ML VIAL IVPUSH (16:59)
[2021-05-13] MEDS: ondansetron HCL 4 MG/2 ML VIAL IVPUSH (00:53)
[2021-05-13] MEDS: 0.9 % Sodium Chloride Flush 3 ML SYRINGE IVFLUSH (00:54)
[2021-05-13] MEDS: Lactated Ringers 1,000 ML 125 ML IVCONT (02:08)
[2021-05-13 03:50] VITALS: BP 143/76; PULSE 67; RESP 18; TEMP 36.8; O2SAT 98
[2021-05-13 07:08] LABS: MANUAL DIFF FLAG NO
[2021-05-13 07:10] VITALS: BP 127/72; PULSE 64; RESP 18; TEMP 37.9; O2SAT 99
[2021-05-13 07:18] LABS: Eosinophils Percent Auto 0.1 % (0-4); Hematocrit 38.3 % (37-47); Hemoglobin 12.7 g/dl (12.0-16.0); Imm Gran Abs Auto 0.02 X10*3/uL (0.00-0.03); Imm Gran Pct Auto 0.3 % (0.0-0.4); Lymphocytes Absolute Auto 1.2 X10*3/uL (1.2-4.9); Lymphocytes Percent Auto 16.3 % (20-40); Mean Corpuscular HGB Conc 33.2 g/dl (31.0-35.0); Mean Corpuscular Hemoglobin 28.5 pg (27.0-33.0); Mean Corpuscular Volume 86.1 fL (80-98); Mean Platelet Volume 10.9 fL (9.4-12.3); Monocytes Absolute Auto 0.8 X10*3/uL (0.1-1.2); Monocytes Percent Auto 9.8 % (2-11); Neutrophils Absolute Auto 5.6 X10*3/uL (2.0-8.3); Neutrophils Percent Auto 73.5 % (45-73); Platelet Count 265 X10*3/uL (160-400); Red Blood Count 4.45 X10*6/uL (4.20-5.50); White Blood Count 7.6 X10*3/uL (4.8-10.8)
[2021-05-13 08:02] VITALS: O2SAT 98
[2021-05-13 08:06] LABS: Anion Gap 13 (12-20); Blood Urea Nitrogen 8 mg/dL (9-16); Calcium 9.3 mg/dL (8.4-10.2); Carbon Dioxide 25 mmol/L (22-29); Chloride 106 mmol/L (96-108); Estimated Glomerular Filt Rate > 60; Glucose Random 98 mg/dL (60-115); Potassium 4.1 mmol/L (3.3-5.1); Sodium 140 mmol/L (135-145)
--- NOTE | 2021-05-13 08:59 | MHC.CM.PN ---
EMR REVIEWED, PT ADMITTED S/P LAP SLEEVE GASTRECTOMY, CM MET W/PT WHO REPORTS SHE IS INDEPENDENT W/ALL CARE, HAS A CPAP AND NO OTHER DME AND NO HOME SERVICES, PT DOES NOT ANTICIPATE ANY NEEDS AFTER D/C AND HAS FOLLOW-UP APPT W/SURGEON, PT VERIFIES PCP AND COMPLETES HCP W/CM, PT GIVEN EDUCATIONAL INFO, ORIGINAL AND TWO COPIES, COPY UPLOADED TO [facility] AND PLACED IN CHART. D/C HOME SELF-CARE, FAMILY FOR TRANSPORT PCP: VANDANA GARLAND HCP: JOSE MIGUEL YATES [phone] ALTERNATE: LORI TIWARI [phone]
[2021-05-13] MEDS: Escitalopram Oxalate 10 MG TABLET PO (09:37)
--- NOTE | 2021-05-13 15:09 | HO.POSTANES ---
Post Anesthesia Evaluation Post Anesthesia Evaluation Vital Signs: Vital Signs Temp Pulse Resp BP Pulse Ox 05/13/21 08:02 98 05/13/21 07:10 100.2 F 64 18 127/72 99 05/13/21 03:50 98.2 F 67 18 143/76 H 98 Anesthesia: General Endotracheal-GETA Mental Status: Awake Pain Control: Satisfactory Nausea/Vomiting: None Hydration: Adequate Anesthesia-Related Issues: No Anes. Related Issues
== END 2021-05-13 10:30 | disposition home or self-care (01) | DRG 621 ==
LOC: HO.SSSA 10:00 → HO.S3 13:41
PROVIDERS: Nurse Practitioner; Physician Assistant; Admitting Provider Surgery; PCP Family Medicine; Visit Provider Surgery
PROC: 0DB64Z3 Excision of Stomach, Percutaneous Endoscopic Approach, Vertical (ICD-10-PCS; CPT 43845; principal; 2021-05-12 07:30)
DX: E66.01 Morbid (severe) obesity due to excess calories (principal); Z86.711 Personal history of pulmonary embolism; E28.2 Polycystic ovarian syndrome; G47.30 Sleep apnea, unspecified; K76.0 Fatty (change of) liver, not elsewhere classified; Z68.43 Body mass index [BMI] 50.0-59.9, adult; N94.6 Dysmenorrhea, unspecified; D21.9 Benign neoplasm of connective and other soft tissue, unspecified; K74.00 Hepatic fibrosis, unspecified; Z20.822 Contact with and (suspected) exposure to COVID-19; Z88.0 Allergy status to penicillin; Z79.899 Other long term (current) drug therapy
CPT/HCPCS: 36415; 80048; 80053; 80061; 81025; 83036; 83525; 84443; 85014; 85018; 85025; 85610; 85730; 86140; 86850; 86900; 86901; 87635; 88307; 88342; 99024; A4649; J0131; J1100; J1170; J1956; J2250; J2370; J2405; J2550; J2765; J3010

== ENCOUNTER → 2021-05-18 07:58 | Outpatient (BNVA) | payer OTHER, SELFPAY | PROVIDERS: PCP Family Medicine; Visit Provider Surgery ==

== ENCOUNTER → 2021-05-26 11:25 | Outpatient (BNVA) | payer OTHER, SELFPAY | PROVIDERS: PCP Family Medicine; Referring Provider Family Medicine; Visit Provider Dietitian, Registered | DX: E66.01 Morbid (severe) obesity due to excess calories (principal) | CPT/HCPCS: 97803 ==

== ENCOUNTER → 2021-07-03 14:53 | Outpatient (BNVA) | payer OTHER, SELFPAY | PROVIDERS: PCP Family Medicine; Referring Provider Family Medicine; Visit Provider Physician Assistant ==

== ENCOUNTER → 2021-08-04 08:13 | Outpatient (BNVA) | payer OTHER, SELFPAY | PROVIDERS: PCP Family Medicine; Visit Provider Dietitian, Registered | DX: E66.9 Obesity, unspecified (principal); Z68.41 Body mass index [BMI] 40.0-44.9, adult | CPT/HCPCS: 97803 ==

== ENCOUNTER 2021-08-28 08:27 | Outpatient (REF) | payer OTHER, SELFPAY ==
[2021-08-28 08:42] LABS: MANUAL DIFF FLAG NO
[2021-08-28 08:53] LABS: Basophils Percent Auto 0.7 % (0-2); Eosinophils Absolute Auto 0.1 X10*3/uL (0.0-0.4); Eosinophils Percent Auto 1.8 % (0-4); Hematocrit 40.7 % (37.0-47.0); Hemoglobin 13.6 g/dl (12.0-16.0); Imm Gran Abs Auto 0.01 X10*3/uL (0.00-0.03); Imm Gran Pct Auto 0.2 % (0.0-0.4); Lymphocytes Absolute Auto 1.5 X10*3/uL (1.2-4.9); Lymphocytes Percent Auto 33.8 % (20-40); Mean Corpuscular HGB Conc 33.4 g/dl (31.0-35.0); Mean Corpuscular Hemoglobin 28.9 pg (27.0-33.0); Mean Corpuscular Volume 86.6 fL (80.0-98.0); Mean Platelet Volume 10.9 fL (9.4-12.3); Monocytes Absolute Auto 0.4 X10*3/uL (0.1-1.2); Monocytes Percent Auto 9.4 % (2-11); Neutrophils Absolute Auto 2.4 x10*3/uL (2.0-8.3); Neutrophils Percent Auto 54.1 % (45-73); Platelet Count 233 X10*3/uL (160-400); Red Cell Distribution Width 13.3 % (11.0-16.0); White Blood Count 4.4 X10*3/uL (4.8-10.8)
[2021-08-28 09:01] LABS: Estimated Average Glucose 91 mg/dL; Hemoglobin A1c % 4.8 %
[2021-08-28 09:25] LABS: Alanine Aminotransferase 61 U/L (0-31); Albumin Level 4.1 g/dL (3.5-5.0); Alkaline Phosphatase 61 U/L (39-117); Anion Gap 12 (12-20); Aspartate Amino Transferase 32 U/L (5-31); Bilirubin Total 0.9 mg/dL (0.0-1.0); Blood Urea Nitrogen 15 mg/dL (9-16); C Reactive Protein 0.42 mg/dL (< or = 0.50); Calcium 10.1 mg/dL (8.4-10.2); Carbon Dioxide 26 mmol/L (22-29); Chloride 106 mmol/L (96-108); Cholesterol 206 mg/dL; Estimated Glomerular Filt Rate > 60; Glucose Random 81 mg/dL (60-115); HDL Cholesterol 37 mg/dL; Iron 107 mcg/dL (30-160); LDL Cholesterol Calculated 156 mg/dl; Percent Iron Saturation 36 % (15-50); Potassium 4.4 mmol/L (3.3-5.1); Sodium 140 mmol/L (135-145); Total Iron Binding Capacity 299 mcg/dL (228-428); Total Protein 7.3 g/dL (6.5-8.0); Triglycerides 65 mg/dL; Unsaturated Iron Binding 192 ug/dL
[2021-08-28 09:46] LABS: Ferritin 248 ng/mL (10-250); Vitamin D 25-OH Total 52.4 ng/mL (>30)
[2021-08-28 09:47] LABS: Vitamin B12 687 pg/mL (200-900)
[2021-08-28 09:48] LABS: Insulin 19 uU/mL (2-29)
[2021-08-28 10:00] LABS: Folate 15.1 ng/mL (> or = 4.0)
[2021-08-31 12:41] LABS: Calcium (PTHI) 9.7 mg/dL (8.6-10.2); PTHI 28 pg/mL (14-64)
[2021-09-01 20:42] LABS: Zinc 69 mcg/dL (60-130)
[2021-09-03 18:52] LABS: Vitamin A 44 mcg/dL (38-98)
[2021-09-04 10:37] LABS: Vitamin B1 <6 nmol/L (8-30)
== END 2021-08-28 08:28 | disposition home or self-care (01) ==
LOC: HO.LAB 08:27
PROVIDERS: Visit Provider Physician Assistant
DX: E66.9 Obesity, unspecified (principal); Z98.84 Bariatric surgery status
CPT/HCPCS: 36415; 80053; 80061; 82306; 82607; 82728; 82746; 83036; 83525; 83540; 83970; 84425; 84443; 84590; 84630; 85025; 86140

== ENCOUNTER → 2021-08-31 09:32 | Outpatient (BNVA) | payer OTHER, SELFPAY | PROVIDERS: PCP Family Medicine; Visit Provider Physician Assistant | DX: E66.9 Obesity, unspecified (principal); Z98.84 Bariatric surgery status ==

== ENCOUNTER → 2021-10-23 15:53 | Outpatient (BNVA) | payer OTHER, SELFPAY | PROVIDERS: PCP Family Medicine; Referring Provider Family Medicine; Visit Provider Physician Assistant | DX: E66.9 Obesity, unspecified (principal); Z98.84 Bariatric surgery status ==

== ENCOUNTER 2021-12-07 07:17 | Outpatient (REF) | payer OTHER, SELFPAY ==
[2021-12-07 07:46] LABS: MANUAL DIFF FLAG NO
[2021-12-07 08:29] LABS: Basophils Percent Auto 0.6 % (0-2); Eosinophils Absolute Auto 0.1 X10*3/uL (0.0-0.4); Eosinophils Percent Auto 1.6 % (0-4); Hematocrit 38.8 % (37.0-47.0); Hemoglobin 13.1 g/dl (12.0-16.0); Imm Gran Abs Auto 0.01 X10*3/uL (0.00-0.03); Imm Gran Pct Auto 0.2 % (0.0-0.4); Lymphocytes Absolute Auto 1.5 X10*3/uL (1.2-4.9); Lymphocytes Percent Auto 29.8 % (20-40); Mean Corpuscular HGB Conc 33.8 g/dl (31.0-35.0); Mean Corpuscular Hemoglobin 29.8 pg (27.0-33.0); Mean Corpuscular Volume 88.2 fL (80.0-98.0); Mean Platelet Volume 10.1 fL (9.4-12.3); Monocytes Absolute Auto 0.4 X10*3/uL (0.1-1.2); Monocytes Percent Auto 8.9 % (2-11); Neutrophils Absolute Auto 2.9 x10*3/uL (2.0-8.3); Neutrophils Percent Auto 58.9 % (45-73); Platelet Count 270 X10*3/uL (160-400); Red Cell Distribution Width 13.4 % (11.0-16.0)
[2021-12-07 08:35] LABS: Estimated Average Glucose 88 mg/dL; Hemoglobin A1c % 4.7 %
[2021-12-07 09:01] LABS: Alanine Aminotransferase 15 U/L (0-31); Albumin Level 3.9 g/dL (3.5-5.0); Alkaline Phosphatase 55 U/L (39-117); Anion Gap 12 (12-20); Aspartate Amino Transferase 26 U/L (5-31); Bilirubin Total 0.6 mg/dL (0.0-1.0); Blood Urea Nitrogen 15 mg/dL (9-16); C Reactive Protein 0.55 mg/dL (< or = 0.50); Calcium 9.3 mg/dL (8.4-10.2); Carbon Dioxide 24 mmol/L (22-29); Chloride 106 mmol/L (96-108); Cholesterol 175 mg/dL; Estimated Glomerular Filt Rate > 60; Glucose Random 76 mg/dL (60-115); HDL Cholesterol 50 mg/dL; Iron 91 mcg/dL (30-160); LDL Cholesterol Calculated 117 mg/dl; Magnesium 2.4 mg/dL (1.6-2.6); Percent Iron Saturation 32 % (15-50); Potassium 4.8 mmol/L (3.3-5.1); Sodium 137 mmol/L (135-145); Total Iron Binding Capacity 282 mcg/dL (228-428); Total Protein 7.4 g/dL (6.5-8.0); Triglycerides 42 mg/dL; Unsaturated Iron Binding 191 ug/dL
[2021-12-07 09:25] LABS: Ferritin 206 ng/mL (10-250); TSH reflex Free T4 2.21 uIU/mL (0.32-4.0); Vitamin D 25-OH Total 43.6 ng/mL (>30)
[2021-12-07 09:57] LABS: Insulin 9 uU/mL (2-29)
[2021-12-07 10:35] LABS: Folate 12.5 ng/mL (> or = 4.0); Vitamin B12 428 pg/mL (200-900)
[2021-12-08 13:27] LABS: Calcium (PTHI) 9.2 mg/dL (8.6-10.2); PTHI 30 pg/mL (16-77)
[2021-12-11 06:32] LABS: Vitamin B1 13 nmol/L (8-30)
[2021-12-11 15:31] LABS: Zinc 71 mcg/dL (60-130)
[2021-12-14 09:07] LABS: Vitamin A 38 mcg/dL (38-98)
== END 2021-12-07 07:18 | disposition home or self-care (01) ==
LOC: HO.LAB 07:17
PROVIDERS: Absent Provider Family Medicine; PCP Family Medicine; Visit Provider Physician Assistant
DX: E66.9 Obesity, unspecified (principal); Z98.84 Bariatric surgery status; Z86.69 Personal history of other diseases of the nervous system and sense organs
CPT/HCPCS: 36415; 80053; 80061; 82306; 82607; 82728; 82746; 83036; 83525; 83540; 83735; 83970; 84425; 84443; 84590; 84630; 85025; 86140

== ENCOUNTER → 2021-12-09 17:00 | Outpatient (BNVA) | payer OTHER, SELFPAY | PROVIDERS: PCP Family Medicine; Visit Provider Counselor Mental Health | DX: F33.0 Major depressive disorder, recurrent, mild (principal) | CPT/HCPCS: 90853 ==

== ENCOUNTER → 2021-12-16 17:00 | Outpatient (BNVA) | payer OTHER, SELFPAY | PROVIDERS: PCP Family Medicine; Visit Provider Counselor Mental Health | DX: F33.0 Major depressive disorder, recurrent, mild (principal) | CPT/HCPCS: 90853 ==

== ENCOUNTER → 2021-12-18 11:57 | Outpatient (BNVA) | payer OTHER, SELFPAY | PROVIDERS: PCP Family Medicine; Referring Provider Family Medicine; Visit Provider Physician Assistant | DX: E66.9 Obesity, unspecified (principal); Z98.84 Bariatric surgery status; Z86.69 Personal history of other diseases of the nervous system and sense organs ==

== ENCOUNTER → 2022-01-06 17:00 | Outpatient (BNVA) | payer OTHER, SELFPAY | PROVIDERS: PCP Family Medicine; Visit Provider Counselor Mental Health | DX: F33.0 Major depressive disorder, recurrent, mild (principal) | CPT/HCPCS: 90853 ==

== ENCOUNTER → 2022-01-13 17:00 | Outpatient (BNVA) | payer OTHER, SELFPAY | PROVIDERS: PCP Family Medicine; Visit Provider Counselor Mental Health | DX: F33.0 Major depressive disorder, recurrent, mild (principal) | CPT/HCPCS: 90853 ==

== ENCOUNTER → 2022-01-20 17:00 | Outpatient (BNVA) | payer OTHER, SELFPAY | PROVIDERS: PCP Family Medicine; Visit Provider Counselor Mental Health | DX: F33.0 Major depressive disorder, recurrent, mild (principal) ==

== ENCOUNTER → 2022-06-25 12:57 | Outpatient (BNVA) | payer OTHER, SELFPAY | PROVIDERS: PCP Family Medicine; Referring Provider Family Medicine; Visit Provider Physician Assistant Surgical | DX: E66.01 Morbid (severe) obesity due to excess calories (principal); Z98.84 Bariatric surgery status; Z86.69 Personal history of other diseases of the nervous system and sense organs | CPT/HCPCS: 99212 ==

== ENCOUNTER → 2022-11-03 16:52 | Outpatient (BNVA) | payer OTHER, SELFPAY | PROVIDERS: PCP Family Medicine; Visit Provider Counselor Mental Health | DX: F33.0 Major depressive disorder, recurrent, mild (principal); E66.01 Morbid (severe) obesity due to excess calories; E28.2 Polycystic ovarian syndrome; E53.8 Deficiency of other specified B group vitamins; Z90.49 Acquired absence of other specified parts of digestive tract | CPT/HCPCS: 90853 ==

== ENCOUNTER → 2022-11-10 11:15 | Outpatient (BNVA) | payer OTHER, SELFPAY | PROVIDERS: PCP Family Medicine; Visit Provider Counselor Mental Health | DX: F33.0 Major depressive disorder, recurrent, mild (principal) | CPT/HCPCS: 90791; 90853 ==

== ENCOUNTER → 2022-11-17 16:10 | Outpatient (BNVA) | payer OTHER, SELFPAY | PROVIDERS: PCP Family Medicine; Visit Provider Counselor Mental Health | DX: F33.0 Major depressive disorder, recurrent, mild (principal); F50.81 Binge eating disorder; E66.01 Morbid (severe) obesity due to excess calories | CPT/HCPCS: 90853 ==

== ENCOUNTER → 2022-11-19 11:04 | Outpatient (BNVA) | payer OTHER, SELFPAY | PROVIDERS: PCP Family Medicine; Visit Provider Counselor Mental Health | DX: F33.0 Major depressive disorder, recurrent, mild (principal); E66.01 Morbid (severe) obesity due to excess calories | CPT/HCPCS: 90834 ==

== ENCOUNTER → 2022-11-24 19:23 | Outpatient (BNVA) | payer OTHER, SELFPAY | PROVIDERS: PCP Family Medicine; Visit Provider Counselor Mental Health | DX: F33.0 Major depressive disorder, recurrent, mild (principal) | CPT/HCPCS: 90853 ==

== ENCOUNTER → 2022-12-01 13:00 | Outpatient (BNVA) | payer OTHER, SELFPAY | PROVIDERS: PCP Family Medicine; Visit Provider Counselor Mental Health | DX: F33.0 Major depressive disorder, recurrent, mild (principal) | CPT/HCPCS: 90853 ==

== ENCOUNTER → 2022-12-13 08:57 | Outpatient (BNVA) | payer OTHER, SELFPAY | PROVIDERS: PCP Family Medicine; Referring Provider Family Medicine; Visit Provider Counselor Mental Health ==

== ENCOUNTER → 2022-12-15 16:57 | Outpatient (BNVA) | payer OTHER, SELFPAY | PROVIDERS: PCP Family Medicine; Visit Provider Counselor Mental Health | DX: F33.0 Major depressive disorder, recurrent, mild (principal) | CPT/HCPCS: 90853 ==

== ENCOUNTER → 2022-12-22 10:30 | Outpatient (BNVA) | payer OTHER, SELFPAY | PROVIDERS: PCP Family Medicine; Visit Provider Counselor Mental Health | DX: F33.0 Major depressive disorder, recurrent, mild (principal) | CPT/HCPCS: 90853 ==

== ENCOUNTER → 2022-12-29 10:27 | Outpatient (BNVA) | payer OTHER, SELFPAY | PROVIDERS: PCP Family Medicine; Visit Provider Counselor Mental Health ==

== ENCOUNTER → 2023-01-10 15:11 | Outpatient (BNVA) | payer OTHER, SELFPAY | PROVIDERS: PCP Family Medicine; Visit Provider Counselor Mental Health ==

== ENCOUNTER → 2023-01-26 15:58 | Outpatient (BNVA) | payer OTHER, SELFPAY | PROVIDERS: PCP Family Medicine; Visit Provider Counselor Mental Health | DX: F33.0 Major depressive disorder, recurrent, mild (principal) | CPT/HCPCS: 90853 ==

== ENCOUNTER → 2023-02-03 09:30 | Outpatient (BNVA) | payer OTHER, SELFPAY | PROVIDERS: PCP Family Medicine; Visit Provider Counselor Mental Health ==

== ENCOUNTER → 2023-02-16 10:28 | Outpatient (BNVA) | payer OTHER, SELFPAY | PROVIDERS: Visit Provider Counselor Mental Health ==

== ENCOUNTER → 2023-03-02 10:21 | Outpatient (BNVA) | payer OTHER, SELFPAY | PROVIDERS: Visit Provider Counselor Mental Health ==

== ENCOUNTER → 2023-03-23 10:30 | Outpatient (BNVA) | payer OTHER, SELFPAY | PROVIDERS: PCP Family Medicine; Visit Provider Counselor Mental Health ==

== ENCOUNTER → 2023-04-06 10:30 | Outpatient (BNVA) | payer OTHER, SELFPAY | PROVIDERS: PCP Family Medicine; Visit Provider Counselor Mental Health ==

== ENCOUNTER 2023-04-12 11:59 | Outpatient (AMB) | payer OTHER, SELFPAY ==
--- NOTE | 2023-04-12 15:33 | A.OFFWM_ITS ---
Intake Intake Visit Reasons: VIDEO PO LSG 05/12/21 Allergies Heparin Analogues [HEPARIN AGENTS] Allergy (Severe, Verified 06/25/22 13:06) patient states was told heparin caused a blood clot Penicillins [PENICILLINS] Allergy (Intermediate, Verified 06/25/22 13:06) HIVES [facility] Medical History (Updated 12/10/21 @ 13:23 by Alie Tinoco) Anemia COVID-19 vaccine series completed Depression Hx pulmonary embolism Jaw anomaly Knee pain Liver fibrosis MDD (major depressive disorder), recurrent episode, mild Morbid obesity Obesity PCOS (polycystic ovarian syndrome) Sleep apnea with use of continuous positive airway pressure (CPAP) Steatosis, liver Vitamin B12 deficiency Surgical History History of inferior vena caval filter placement History of mandibular surgery Hx of cholecystectomy Hx of colonoscopy Hx of excision of mass Hx of oral surgery Family History Mother No problems noted. Father Diabetes Hypertension Hyperlipidemia Sister No problems noted. Sister No problems noted. Sister No problems noted. Sister Acute Crohn's disease Sister No problems noted. Social History Household Members: Spouse Housing: House Are you a primary vision care associate to a significant other at home: No Do you presently have visiting nurse or other home services: No Alcohol intake: current Alcohol intake frequency: does not drink Patient Tobacco Use Status: Never used Tobacco Substance Use Type: Marijuana service: No Current occupational status: employed [employer] Assessment Weight Management Therapy Therapy Notes Details Pt reported small steps towards her goal. She has been walking, bike riding and trying to make better meal choices. discussed consistency and mindfullness of how she is feeling afterwards. Assessment & Plan Assessment & Plan (1) MDD (major depressive disorder), recurrent episode, mild: Code(s): F33.0 - Major depressive disorder, recurrent, mild Plan Post operative patient seeking support and therapy due to depression, emotional eating, and coping skills. She should continue group therapy. She is also looking for EMDR therapy to help with healing previous trauma. Telehealth Telehealth Location of provider rendering services: other Location of patient: address on file Patient Identification confirmed using: Name, : Yes Telehealth method: video Patient verbally consented to treatment: Yes Patient verbally consented to billing insurance company: Yes Patient informed of any privacy concerns related to visit: Yes Minutes spent on Phone/Video with Pt.: 30 Coding Level of Care Code Tele Psytx 30 mins ([id number]) Diagnoses MDD (major depressive disorder), recurrent episode, mild F33.0 Time Spent (min) 30
== END 2023-04-12 15:33 | disposition home or self-care (01) ==
LOC: HO.HBST 11:59
PROVIDERS: PCP Family Medicine; Visit Provider Counselor Mental Health
DX: F33.0 Major depressive disorder, recurrent, mild (principal)
CPT/HCPCS: 90832

== ENCOUNTER → 2023-04-12 11:59 | Outpatient (BNVA) | payer OTHER, SELFPAY | PROVIDERS: PCP Family Medicine; Visit Provider Counselor Mental Health ==

== ENCOUNTER → 2023-04-20 17:00 | Outpatient (BNVA) | payer OTHER, SELFPAY | PROVIDERS: PCP Family Medicine; Visit Provider Counselor Mental Health ==

== ENCOUNTER → 2023-04-20 17:00 | Outpatient (BNVA) | payer OTHER, SELFPAY | PROVIDERS: PCP Family Medicine; Visit Provider Counselor Mental Health ==

== ENCOUNTER 2023-04-21 13:45 | Outpatient (AMB) | payer OTHER, SELFPAY ==
--- NOTE | 2023-04-21 15:24 | A.OFFWM_ITS ---
Intake Intake Visit Reasons: VIDEO PO LSG 05/12/21 Allergies Heparin Analogues [HEPARIN AGENTS] Allergy (Severe, Verified 06/25/22 13:06) patient states was told heparin caused a blood clot Penicillins [PENICILLINS] Allergy (Intermediate, Verified 06/25/22 13:06) HIVES [facility] Medical History (Updated 12/10/21 @ 13:23 by Alie Tinoco) Anemia COVID-19 vaccine series completed Depression Hx pulmonary embolism Jaw anomaly Knee pain Liver fibrosis MDD (major depressive disorder), recurrent episode, mild Morbid obesity Obesity PCOS (polycystic ovarian syndrome) Sleep apnea with use of continuous positive airway pressure (CPAP) Steatosis, liver Vitamin B12 deficiency Surgical History History of inferior vena caval filter placement History of mandibular surgery Hx of cholecystectomy Hx of colonoscopy Hx of excision of mass Hx of oral surgery Family History Mother No problems noted. Father Diabetes Hypertension Hyperlipidemia Sister No problems noted. Sister No problems noted. Sister No problems noted. Sister Acute Crohn's disease Sister No problems noted. Social History Household Members: Spouse Housing: House Are you a primary care transition coordinator to a significant other at home: No Do you presently have visiting nurse or other home services: No Alcohol intake: current Alcohol intake frequency: does not drink Patient Tobacco Use Status: Never used Tobacco Substance Use Type: Marijuana service: No Current occupational status: employed Behavior[employer] Assessment Weight Management Therapy Therapy Notes Details EMDR session, completed two events of prior surgeries related to her jaw. SUDS O. completed. Assessment & Plan Assessment & Plan (1) MDD (major depressive disorder), recurrent episode, mild: Code(s): F33.0 - Major depressive disorder, recurrent, mild Plan Post operative patient seeking support and therapy due to depression, emotional eating, and coping skills. She should continue group therapy. She is also looking for EMDR therapy to help with healing previous trauma. Telehealth Telehealth Location of provider rendering services: other Location of patient: address on file Patient Identification confirmed using: Name, : Yes Telehealth method: video Patient verbally consented to treatment: Yes Patient verbally consented to billing insurance company: Yes Patient informed of any privacy concerns related to visit: Yes Minutes spent on Phone/Video with Pt.: 45 Coding Level of Care Code Tele Psytx 45 mins ([id number]) Diagnoses MDD (major depressive disorder), recurrent episode, mild F33.0 Time Spent (min) 45
== END 2023-04-21 15:24 | disposition home or self-care (01) ==
LOC: HO.HBST 14:44
PROVIDERS: PCP Family Medicine; Visit Provider Counselor Mental Health
DX: F33.0 Major depressive disorder, recurrent, mild (principal)
CPT/HCPCS: 90834

== ENCOUNTER → 2023-04-21 13:45 | Outpatient (BNVA) | payer OTHER, SELFPAY | PROVIDERS: PCP Family Medicine; Visit Provider Counselor Mental Health ==

== ENCOUNTER → 2023-05-04 19:56 | Outpatient (BNVA) | payer OTHER, SELFPAY | PROVIDERS: PCP Family Medicine; Visit Provider Counselor Mental Health ==

== ENCOUNTER 2023-05-13 09:14 | Outpatient (AMB) | payer OTHER, SELFPAY ==
--- NOTE | 2023-05-13 09:53 | MHC.WMTHER ---
Intake Intake Visit Reasons: VIDEO PO LSG 05/12/21 Allergies Heparin Analogues [HEPARIN AGENTS] Allergy (Severe, Verified 06/25/22 13:06) patient states was told heparin caused a blood clot Penicillins [PENICILLINS] Allergy (Intermediate, Verified 06/25/22 13:06) HIVES COUNT INCLUD[facility] Medical History (Updated 12/10/21 @ 13:23 by Alie Tinoco) Liver fibrosis Anemia Depression Hx pulmonary embolism PCOS (polycystic ovarian syndrome) COVID-19 vaccine series completed Jaw anomaly MDD (major depressive disorder), recurrent episode, mild Vitamin B12 deficiency Steatosis, liver Knee pain Sleep apnea with use of continuous positive airway pressure (CPAP) Morbid obesity Obesity Surgical History History of inferior vena caval filter placement History of mandibular surgery Hx of cholecystectomy Hx of colonoscopy Hx of excision of mass Hx of oral surgery Family History Mother No problems noted. Father Diabetes Hypertension Hyperlipidemia Sister No problems noted. Sister No problems noted. Sister No problems noted. Sister Acute Crohn's disease Sister No problems noted. Social History Household Members: Spouse Housing: House Are you a primary acute care occupational therapist to a significant other at home: No Do you presently have visiting nurse or other home services: No Alcohol intake: current Alcohol intake frequency: does not drink Patient Tobacco Use Status: Never used Tobacco Substance Use Type: Marijuana service: No Current occupational status: employed Behavior[employer] Assessment Weight Management Therapy Therapy Notes Details EMDR session, reprocessed memory from age 13 onset of medical issues with her jaw and also facial changes due to those issues as a teenager. Complete session, 0 SUDS Assessment & Plan Assessment & Plan (1) MDD (major depressive disorder), recurrent episode, mild: Code(s): F33.0 - Major depressive disorder, recurrent, mild Plan Post operative patient seeking support and therapy due to depression, emotional eating, and coping skills. She should continue group therapy. She is also looking for EMDR therapy to help with healing previous trauma. Telehealth Telehealth Location of provider rendering services: other Location of patient: address on file Patient Identification confirmed using: Name, : Yes Telehealth method: video Patient verbally consented to treatment: Yes Patient verbally consented to billing insurance company: Yes Patient informed of any privacy concerns related to visit: Yes Minutes spent on Phone/Video with Pt.: 48 Coding Level of Care Code Tele Psytx 45 mins ([id number]) Diagnoses MDD (major depressive disorder), recurrent episode, mild F33.0 Time Spent (min) 48
== END 2023-05-13 09:53 | disposition home or self-care (01) ==
LOC: HO.HBST 09:14
PROVIDERS: PCP Family Medicine; Visit Provider Counselor Mental Health
DX: F33.0 Major depressive disorder, recurrent, mild (principal)
CPT/HCPCS: 90834

== ENCOUNTER → 2023-05-13 09:14 | Outpatient (BNVA) | payer OTHER, SELFPAY | PROVIDERS: PCP Family Medicine; Visit Provider Counselor Mental Health ==

== ENCOUNTER 2023-05-24 10:23 | Outpatient (AMB) | payer OTHER, SELFPAY ==
--- NOTE | 2023-05-24 10:28 | A.OFFVIS_ITS ---
Intake VS Expanded 05/24/23 10:32 Height 5 ft 8.5 in Weight 309 lb 3.2 oz BMI 46.3 BP 120/64 Blood Pressure Location Rt brachial Blood Pressure Position Sitting Respiratory Rate 16 Pulse 62 Pulse Source Pulse Oximeter Temp 97.8 F Temperature Source Temporal Artery Scan Pulse Oximetry 97 Oxygen Delivery Method Room Air Body Fat 142.2 Body Fat Percentage 46.0 Free Fat Mass 166.8 Muscle Mass 158.6 Visceral Mass 15.0 Water Mass 119.0 BMR 2,379 Intake Visit Reasons: (OV) PO LSG 05/12/21 Allergies Heparin Analogues [HEPARIN AGENTS] Allergy (Severe, Verified 05/24/23 10:30) patient states was told heparin caused a blood clot Penicillins [PENICILLINS] Allergy (Intermediate, Verified 05/24/23 10:30) HIVES Medication List - Last Reconciled 05/24/23 by ARACELIS Dickinson calcium citrate-vitamin D3 315 mg-5 mcg (200 unit) (Calcium Citrate + D) 1 tab PO BID citalopram 20 mg PO DAILY cyanocobalamin (vitamin B-12) 500 mcg PO DAILY docusate sodium (Stool Softener) 100 mg PO DAILY magnesium gluconate (Mag-G) 54 mg PO DAILY multivitamin 1 tab PO DAILY norethindrone acetate 5 mg PO BEDTIME psyllium husk (Metamucil) 1.04 grams PO DAILY HPI HPI Comments History of Present Illness Details This?is a?48?yo female who is s/p LSG 05/12/2021. Presents for 2 year post op visit. Weight at last visit on 06/25/2022 was 280.4 pounds with a BMI of 42, weight today is 309.2 pounds, representing a 28.8 pound weight gain with a BMI today of 46.3.? No complaints of nausea, emesis, abdominal pain or reflux, or constipation. Present meal plan includes: shake for breakfast tries to eat a healthy lunch and dinner will snack on other items like cookies- knows she is an emotional eater, sometimes boredom thinks she gets enough protein has started EMDR with Alie, does find it helpful not taking a MVI, taking B12 and Ca Exercise: had jaw surgery in March, was not walking or doing CrossFit until last week, late ly bike riding Did the patient ever have any of these conditions and are they resolved or still being treated? GERD: rare JAKE:? CPAP DM:? never HTN:? never Hyperlipidemia:?never Post op complications:? none PFSH Medical History (Updated 12/10/21 @ 13:23 by Alie Tinoco) Liver fibrosis Anemia Depression Hx pulmonary embolism PCOS (polycystic ovarian syndrome) COVID-19 vaccine series completed Jaw anomaly MDD (major depressive disorder), recurrent episode, mild Vitamin B12 deficiency Steatosis, liver Knee pain Sleep apnea with use of continuous positive airway pressure (CPAP) Morbid obesity Obesity Surgical History History of inferior vena caval filter placement Hx of excision of mass Hx of oral surgery History of mandibular surgery Hx of cholecystectomy Hx of colonoscopy Family History Mother No problems noted. Father Diabetes Hypertension Hyperlipidemia Sister No problems noted. Sister No problems noted. Sister No problems noted. Sister Acute Crohn's disease Sister No problems noted. Social History Household Members: Spouse Housing: House Are you a primary director of home care hospice to a significant other at home: No Do you presently have visiting nurse or other home services: No Alcohol intake: current Alcohol intake frequency: does not drink Patient Tobacco Use Status: Never used Tobacco Substance Use Type: Marijuana service: No Current occupational status: employed Physical Exam Vital Signs: Last Vital Signs Temp 97.8 F 05/24/23 10:32 Pulse 62 05/24/23 10:32 Resp 16 05/24/23 10:32 BP 120/64 05/24/23 10:32 Pulse Ox 97 05/24/23 10:32 Oxygen Delivery Method Room Air 05/24/23 10:32 BMI result Body Mass Index 46.3 Const General: cooperative, comfortable and no acute distress Orientation/consciousness: patient oriented x3 GI Other: soft, nontender, nondistended, incisions well healed, no hernia, no masses Neuro General: patient oriented x3 Assessment & Plan Assessment & Plan (1) Morbid obesity: Code(s): E66.01 - Morbid (severe) obesity due to excess calories (2) S/P laparoscopic sleeve gastrectomy: Code(s): Z98.84 - Bariatric surgery status Plan Meal plan: Shake for breakfast 4oz/4oz for lunch Shake in afternoon 4oz/4oz for dinner if she needs an evening snack- string cheese or protein bar Suggested meeting with RD to expand meal plan as pt is struggling with finding foods to substitute for her cravings. She will continue therapy with Alie and recognizes some of her eating habits are due to boredom or emotional eating. Reminded pt to have labs drawn, did not do last year. Patient is morbidly obese and is not considered stable at this time. I spent a total of 30 minutes reviewing/updating records, examining the patient and counseling the patient on weight management as detailed above. Coding Level of Care Code Est Pt Level 4 (82420) Diagnoses Morbid obesity E66.01 S/P laparoscopic sleeve gastrectomy Z98.84
[2023-05-24 10:32] VITALS: BP 120/64; PULSE 62; RESP 16; TEMP 36.6; O2SAT 97; BMI 46.3
== END 2023-05-24 11:13 | disposition home or self-care (01) ==
PROVIDERS: PCP Family Medicine; Visit Provider Physician Assistant Surgical
DX: E66.01 Morbid (severe) obesity due to excess calories (principal); Z98.84 Bariatric surgery status
CPT/HCPCS: 99214

== ENCOUNTER → 2023-05-24 10:23 | Outpatient (BNVA) | payer OTHER, SELFPAY | PROVIDERS: PCP Family Medicine; Visit Provider Physician Assistant Surgical ==

== ENCOUNTER 2023-05-25 07:48 | Outpatient (REF) | payer OTHER, SELFPAY ==
[2023-05-25 08:17] LABS: MANUAL DIFF FLAG NO
[2023-05-25 08:50] LABS: Basophils Percent Auto 0.6 % (0-2); Eosinophils Absolute Auto 0.1 X10*3/uL (0.0-0.4); Eosinophils Percent Auto 1.5 % (0-4); Hematocrit 38.9 % (37.0-47.0); Hemoglobin 13.2 g/dl (12.0-16.0); Imm Gran Abs Auto 0.01 X10*3/uL (0.00-0.03); Imm Gran Pct Auto 0.2 % (0.0-0.4); Lymphocytes Absolute Auto 1.2 X10*3/uL (1.2-4.9); Lymphocytes Percent Auto 24.7 % (20-40); Mean Corpuscular HGB Conc 33.9 g/dl (31.0-35.0); Mean Corpuscular Hemoglobin 29.5 pg (27.0-33.0); Mean Corpuscular Volume 86.8 fL (80.0-98.0); Mean Platelet Volume 10.3 fL (9.4-12.3); Monocytes Absolute Auto 0.5 X10*3/uL (0.1-1.2); Monocytes Percent Auto 10.7 % (2-11); Neutrophils Absolute Auto 2.9 x10*3/uL (2.0-8.3); Neutrophils Percent Auto 62.3 % (45-73); Platelet Count 269 X10*3/uL (160-400); Red Blood Count 4.48 X10*6/uL (4.20-5.50); Red Cell Distribution Width 13.2 % (11.0-16.0); White Blood Count 4.7 X10*3/uL (4.8-10.8)
[2023-05-25 08:58] LABS: Estimated Average Glucose 85 mg/dL; Hemoglobin A1c % 4.6 % (<6.0)
[2023-05-25 10:29] LABS: Alanine Aminotransferase 10 U/L (0-31); Alkaline Phosphatase 71 U/L (39-117); Anion Gap 9 (12-20); Aspartate Amino Transferase 19 U/L (5-31); Bilirubin Total 0.6 mg/dL (0.0-1.0); Blood Urea Nitrogen 13 mg/dL (9-16); C Reactive Protein 0.29 mg/dL (< or = 0.50); Calcium 9.1 mg/dL (8.4-10.2); Carbon Dioxide 29 mmol/L (22-29); Chloride 107 mmol/L (96-108); Cholesterol 150 mg/dL (<200); Estimated Glomerular Filt Rate > 60; Glucose Random 79 mg/dL (60-115); HDL Cholesterol 62 mg/dL (>40); Iron 101 mcg/dL (30-160); LDL Cholesterol Calculated 81 mg/dL (<100); Percent Iron Saturation 33 % (15-50); Potassium 4.3 mmol/L (3.3-5.1); Sodium 141 mmol/L (135-145); Total Iron Binding Capacity 302 mcg/dL (228-428); Total Protein 7.3 g/dL (6.5-8.0); Triglycerides 39 mg/dL (<150); Unsaturated Iron Binding 201 ug/dL
[2023-05-25 10:39] LABS: Ferritin 64 ng/mL (10-250); Folate 11.7 ng/mL (> or = 4.0); Insulin 11 uU/mL (2-29); TSH reflex Free T4 1.63 uIU/mL (0.32-4.0); Vitamin B12 473 pg/mL (200-900); Vitamin D 25-OH Total 32.4 ng/mL (>30)
[2023-05-26 12:04] LABS: Calcium (PTHI) 8.8 mg/dL (8.6-10.2); PTHI 72 pg/mL (16-77)
[2023-05-28 04:34] LABS: Zinc 81 mcg/dL (60-130)
[2023-05-31 18:09] LABS: Vitamin A 53 mcg/dL (38-98)
[2023-06-03 17:13] LABS: Vitamin B1 32 nmol/L (8-30)
== END 2023-05-25 07:49 | disposition home or self-care (01) ==
LOC: HO.LAB 07:48
PROVIDERS: PCP Family Medicine; Visit Provider Physician Assistant Surgical
DX: K91.2 Postsurgical malabsorption, not elsewhere classified (principal); Z98.84 Bariatric surgery status
CPT/HCPCS: 36415; 80053; 80061; 82306; 82607; 82728; 82746; 83036; 83525; 83540; 83970; 84425; 84443; 84590; 84630; 85025; 86140

== ENCOUNTER 2023-06-01 19:08 | Outpatient (AMB) | payer OTHER, SELFPAY ==
--- NOTE | 2023-06-08 10:56 | A.OFFWM_ITS ---
Intake Intake Visit Reasons: Group Therapy Allergies Heparin Analogues [HEPARIN AGENTS] Allergy (Severe, Verified 05/24/23 10:30) patient states was told heparin caused a blood clot Penicillins [PENICILLINS] Allergy (Intermediate, Verified 05/24/23 10:30) HIVES [facility] Medical History (Updated 12/10/21 @ 13:23 by Alie Tinoco) Liver fibrosis Anemia Depression Hx pulmonary embolism PCOS (polycystic ovarian syndrome) COVID-19 vaccine series completed Jaw anomaly MDD (major depressive disorder), recurrent episode, mild Vitamin B12 deficiency Steatosis, liver Knee pain Sleep apnea with use of continuous positive airway pressure (CPAP) Morbid obesity Obesity Surgical History History of inferior vena caval filter placement Hx of excision of mass Hx of oral surgery History of mandibular surgery Hx of cholecystectomy Hx of colonoscopy Family History Mother No problems noted. Father Diabetes Hypertension Hyperlipidemia Sister No problems noted. Sister No problems noted. Sister No problems noted. Sister Acute Crohn's disease Sister No problems noted. Social History Household Members: Spouse Housing: House Are you a primary healthcare facility administrator to a significant other at home: No Do you presently have visiting nurse or other home services: No Alcohol intake: current Alcohol intake frequency: does not drink Patient Tobacco Use Status: Never used Tobacco Substance Use Type: Marijuana service: No Current occupational status: employed Behavioral [employer] Assessment Weight Management Therapy Therapy Notes Details Group therapy session, continuing the conversation on emotional/binge eating from previous weeks workshop. Discussed somatic therapies and POV of the disordered eating as a symptom. Patient was enagaged and cooperative. Assessment & Plan Assessment & Plan (1) MDD (major depressive disorder), recurrent episode, mild: Code(s): F33.0 - Major depressive disorder, recurrent, mild Plan Post operative patient seeking support and therapy due to depression, emotional eating, and coping skills. She should continue group therapy. She is also looking for EMDR therapy to help with healing previous trauma. Coding Level of Care Code Grp Psych (16426) Diagnoses MDD (major depressive disorder), recurrent episode, mild F33.0 Time Spent (min) 60
== END 2023-06-08 10:56 | disposition home or self-care (01) ==
PROVIDERS: PCP Family Medicine; Visit Provider Counselor Mental Health
DX: F33.0 Major depressive disorder, recurrent, mild (principal)

== ENCOUNTER → 2023-06-01 19:08 | Outpatient (BNVA) | payer OTHER, SELFPAY | PROVIDERS: PCP Family Medicine; Visit Provider Counselor Mental Health | DX: F33.0 Major depressive disorder, recurrent, mild (principal) | CPT/HCPCS: 90853 ==

== ENCOUNTER 2023-06-08 11:49 | Outpatient (AMB) | payer OTHER, SELFPAY ==
--- NOTE | 2023-06-08 11:53 | A.OFFWM_ITS ---
Intake Intake Visit Reasons: VIDEO PO LSG 05/12/21 Allergies Heparin Analogues [HEPARIN AGENTS] Allergy (Severe, Verified 05/24/23 10:30) patient states was told heparin caused a blood clot Penicillins [PENICILLINS] Allergy (Intermediate, Verified 05/24/23 10:30) HIVES [facility] Medical History (Updated 12/10/21 @ 13:23 by Alie Tinoco) Liver fibrosis Anemia Depression Hx pulmonary embolism PCOS (polycystic ovarian syndrome) COVID-19 vaccine series completed Jaw anomaly MDD (major depressive disorder), recurrent episode, mild Vitamin B12 deficiency Steatosis, liver Knee pain Sleep apnea with use of continuous positive airway pressure (CPAP) Morbid obesity Obesity Surgical History History of inferior vena caval filter placement Hx of excision of mass Hx of oral surgery History of mandibular surgery Hx of cholecystectomy Hx of colonoscopy Family History Mother No problems noted. Father Diabetes Hypertension Hyperlipidemia Sister No problems noted. Sister No problems noted. Sister No problems noted. Sister Acute Crohn's disease Sister No problems noted. Social History Household Members: Spouse Housing: House Are you a primary neonatal intensive care unit nurse to a significant other at home: No Do you presently have visiting nurse or other home services: No Alcohol intake: current Alcohol intake frequency: does not drink Patient Tobacco Use Status: Never used Tobacco Substance Use Type: Marijuana service: No Current occupational status: employed Behavioral [employer] Assessment Weight Management Therapy Therapy Notes Details Pt reported significant progress after appt with provider. She was shocked to see how much weight she gained so this has motivated her. She has increased protein intake in the morning which has helped her to reduce over eating later in the day on empty calories. She is also walking daily. Yesterday noted that she made good choices at a work function. Positive reinforcement, journaling, and continue with EMDR. Presenting Concerns Referral Source self Reason for referral depression, over eating Precipitating Event trauma Living Situation Current Living Situation Own At risk of losing current housing? No Satisfied with current living situation? Yes Comments Pt lives with her and their pets. Food/Weight/Diet History/Relationship with dieting weight loss surgery about two years ago here at [facility]. Assessment & Plan Assessment & Plan (1) MDD (major depressive disorder), recurrent episode, mild: Code(s): F33.0 - Major depressive disorder, recurrent, mild Plan Post operative patient seeking support and therapy due to depression, emotional eating, and coping skills. She should continue group therapy. She is also looking for EMDR therapy to help with healing previous trauma. Telehealth Telehealth Location of provider rendering services: practice address Location of patient: address on file Patient Identification confirmed using: Name, : Yes Telehealth method: video Patient verbally consented to treatment: Yes Patient verbally consented to billing insurance company: Yes Patient informed of any privacy concerns related to visit: Yes Minutes spent on Phone/Video with Pt.: 40 Coding Level of Care Code Tele Psytx 45 mins ([id number]) Diagnoses MDD (major depressive disorder), recurrent episode, mild F33.0 Time Spent (min) 40
== END 2023-06-08 11:58 | disposition home or self-care (01) ==
LOC: HO.HBST 11:50
PROVIDERS: PCP Family Medicine; Visit Provider Counselor Mental Health
DX: F33.0 Major depressive disorder, recurrent, mild (principal)
CPT/HCPCS: 90834

== ENCOUNTER → 2023-06-08 11:49 | Outpatient (BNVA) | payer OTHER, SELFPAY | PROVIDERS: PCP Family Medicine; Visit Provider Counselor Mental Health ==

== ENCOUNTER → 2023-06-17 10:50 | Outpatient (BNVA) | payer OTHER, SELFPAY | PROVIDERS: PCP Family Medicine; Visit Provider Dietitian, Registered | DX: E66.9 Obesity, unspecified (principal); Z68.41 Body mass index [BMI] 40.0-44.9, adult; Z98.84 Bariatric surgery status; Z71.3 Dietary counseling and surveillance | CPT/HCPCS: 97803 ==

== ENCOUNTER 2023-07-06 15:49 | Outpatient (AMB) | payer OTHER, SELFPAY ==
--- NOTE | 2023-07-06 16:48 | MHC.WMTHER ---
Intake Intake Visit Reasons: (OV) PO LSG 05/12/21 Allergies Heparin Analogues [HEPARIN AGENTS] Allergy (Severe, Verified 05/24/23 10:30) patient states was told heparin caused a blood clot Penicillins [PENICILLINS] Allergy (Intermediate, Verified 05/24/23 10:30) HIVES [facility] Medical History (Updated 12/10/21 @ 13:23 by Alie Tinoco) Liver fibrosis Anemia Depression Hx pulmonary embolism PCOS (polycystic ovarian syndrome) COVID-19 vaccine series completed Jaw anomaly MDD (major depressive disorder), recurrent episode, mild Vitamin B12 deficiency Steatosis, liver Knee pain Sleep apnea with use of continuous positive airway pressure (CPAP) Morbid obesity Obesity Surgical History History of inferior vena caval filter placement Hx of excision of mass Hx of oral surgery History of mandibular surgery Hx of cholecystectomy Hx of colonoscopy Family History Mother No problems noted. Father Diabetes Hypertension Hyperlipidemia Sister No problems noted. Sister No problems noted. Sister No problems noted. Sister Acute Crohn's disease Sister No problems noted. Social History Household Members: Spouse Housing: House Are you a primary patient care representative to a significant other at home: No Do you presently have visiting nurse or other home services: No Alcohol intake: current Alcohol intake frequency: does not drink Patient Tobacco Use Status: Never used Tobacco Substance Use Type: Marijuana service: No Current occupational status: employed Behavioral Health Assessment Weight Management Therapy Therapy Notes Details Pt reported significant progress after appt with provider. She was shocked to see how much weight she gained so this has motivated her. She has increased protein intake in the morning which has helped her to reduce over eating later in the day on empty calories. She is also walking daily. Yesterday noted that she made good choices at a work function. Positive reinforcement, journaling, and continue with EMDR. Patient completed EMDR session on mom's brain cancer diagnosis. SUDS O complete. Presenting Concerns Referral Source self Reason for referral depression, over eating Precipitating Event trauma Living Situation Current Living Situation Own At risk of losing current housing? No Satisfied with current living situation? Yes Comments Pt lives with her and their pets. Food/Weight/Diet History/Relationship with dieting weight loss surgery about two years ago here at [facility]. Assessment & Plan Assessment & Plan (1) MDD (major depressive disorder), recurrent episode, mild: Code(s): F33.0 - Major depressive disorder, recurrent, mild Plan Post operative patient seeking support and therapy due to depression, emotional eating, and coping skills. She should continue group therapy. She is also looking for EMDR therapy to help with healing previous trauma. Coding Level of Care Code Psytx >53 mins ([id number]) Diagnoses MDD (major depressive disorder), recurrent episode, mild F33.0 Time Spent (min) 55
== END 2023-07-06 16:48 | disposition home or self-care (01) ==
PROVIDERS: PCP Family Medicine; Visit Provider Counselor Mental Health
DX: F33.0 Major depressive disorder, recurrent, mild (principal)
CPT/HCPCS: 90837

== ENCOUNTER → 2023-07-06 15:49 | Outpatient (BNVA) | payer OTHER, SELFPAY | PROVIDERS: PCP Family Medicine; Visit Provider Counselor Mental Health ==

== ENCOUNTER 2023-07-13 10:34 | Outpatient (AMB) | payer OTHER, SELFPAY ==
--- NOTE | 2023-07-13 11:12 | A.OFFWM_ITS ---
Intake Intake Visit Reasons: VIDEO PO LSG 05/12/21 Allergies Heparin Analogues [HEPARIN AGENTS] Allergy (Severe, Verified 05/24/23 10:30) patient states was told heparin caused a blood clot Penicillins [PENICILLINS] Allergy (Intermediate, Verified 05/24/23 10:30) HIVES REPLACED [facility] Medical History (Updated 12/10/21 @ 13:23 by Alie Tinoco) Liver fibrosis Anemia Depression Hx pulmonary embolism PCOS (polycystic ovarian syndrome) COVID-19 vaccine series completed Jaw anomaly MDD (major depressive disorder), recurrent episode, mild Vitamin B12 deficiency Steatosis, liver Knee pain Sleep apnea with use of continuous positive airway pressure (CPAP) Morbid obesity Obesity Surgical History History of inferior vena caval filter placement Hx of excision of mass Hx of oral surgery History of mandibular surgery Hx of cholecystectomy Hx of colonoscopy Family History Mother No problems noted. Father Diabetes Hypertension Hyperlipidemia Sister No problems noted. Sister No problems noted. Sister No problems noted. Sister Acute Crohn's disease Sister No problems noted. Social History Household Members: Spouse Housing: House Are you a primary summer child caregiver to a significant other at home: No Do you presently have visiting nurse or other home services: No Alcohol intake: current Alcohol intake frequency: does not drink Patient Tobacco Use Status: Never used Tobacco Substance Use Type: Marijuana service: No Current occupational status: employed Behavioral Health Assessment Weight Management Therapy Therapy Notes Details EMDR session complete on event of her mom in the hospital after falling into a wall. SUDS zero, complete session. Assessment & Plan Assessment & Plan (1) MDD (major depressive disorder), recurrent episode, mild: Code(s): F33.0 - Major depressive disorder, recurrent, mild Plan Post operative patient seeking support and therapy due to depression, emotional eating, and coping skills. She should continue group therapy. She is also looking for EMDR therapy to help with healing previous trauma. Telehealth Telehealth Location of provider rendering services: practice address Location of patient: address on file Patient Identification confirmed using: Name, : Yes Telehealth method: video Patient verbally consented to treatment: Yes Patient verbally consented to billing insurance company: Yes Patient informed of any privacy concerns related to visit: Yes Minutes spent on Phone/Video with Pt.: 45 Coding Level of Care Code Tele Psytx 45 mins ([id number]) Diagnoses MDD (major depressive disorder), recurrent episode, mild F33.0 Time Spent (min) 45
== END 2023-07-13 11:12 | disposition home or self-care (01) ==
LOC: HO.HBST 10:34
PROVIDERS: PCP Family Medicine; Visit Provider Counselor Mental Health
DX: F33.0 Major depressive disorder, recurrent, mild (principal)
CPT/HCPCS: 90834

== ENCOUNTER → 2023-07-13 10:34 | Outpatient (BNVA) | payer OTHER, SELFPAY | PROVIDERS: PCP Family Medicine; Visit Provider Counselor Mental Health ==

== ENCOUNTER 2023-07-20 11:07 | Outpatient (AMB) | payer OTHER, SELFPAY ==
--- NOTE | 2023-07-20 11:42 | A.OFFWM_ITS ---
Intake Intake Visit Reasons: VIDEO PO LSG 05/12/21 Allergies Heparin Analogues [HEPARIN AGENTS] Allergy (Severe, Verified 05/24/23 10:30) patient states was told heparin caused a blood clot Penicillins [PENICILLINS] Allergy (Intermediate, Verified 05/24/23 10:30) [facility] Medical History (Updated 12/10/21 @ 13:23 by Alie Tinoco) Liver fibrosis Anemia Depression Hx pulmonary embolism PCOS (polycystic ovarian syndrome) COVID-19 vaccine series completed Jaw anomaly MDD (major depressive disorder), recurrent episode, mild Vitamin B12 deficiency Steatosis, liver Knee pain Sleep apnea with use of continuous positive airway pressure (CPAP) Morbid obesity Obesity Surgical History History of inferior vena caval filter placement Hx of excision of mass Hx of oral surgery History of mandibular surgery Hx of cholecystectomy Hx of colonoscopy Family History Mother No problems noted. Father Diabetes Hypertension Hyperlipidemia Sister No problems noted. Sister No problems noted. Sister No problems noted. Sister Acute Crohn's disease Sister No problems noted. Social History Household Members: Spouse Housing: House Are you a primary lpn care manager to a significant other at home: No Do you presently have visiting nurse or other home services: No Alcohol intake: current Alcohol intake frequency: does not drink Patient Tobacco Use Status: Never used Tobacco Substance Use Type: Marijuana service: No Current occupational status: employed Behavioral Health Assessment Weight Management Therapy Therapy Notes Details Pt reported significant progress after appt with provider. She was shocked to see how much weight she gained so this has motivated her. She has increased protein intake in the morning which has helped her to reduce over eating later in the day on empty calories. She is also walking daily. Yesterday noted that she made good choices at a work function. Positive reinforcement, journaling, and continue with EMDR. NO EMDR today. Talked about how she has been feeling since last session, stress at work and being faced with having to make decisions to change positions or stay. She continues to exercise and take care of herself. Patient stated that she has noticed a difference. Presenting Concerns Referral Source self Reason for referral depression, over eating Precipitating Event trauma Living Situation Current Living Situation Own At risk of losing current housing? No Satisfied with current living situation? Yes Comments Pt lives with her and their pets. Food/Weight/Diet History/Relationship with dieting weight loss surgery about two years ago here at [facility]. Assessment & Plan Assessment & Plan (1) MDD (major depressive disorder), recurrent episode, mild: Code(s): F33.0 - Major depressive disorder, recurrent, mild Plan Post operative patient seeking support and therapy due to depression, emotional eating, and coping skills. She should continue group therapy. She is also looking for EMDR therapy to help with healing previous trauma. Telehealth Telehealth Location of provider rendering services: practice address Location of patient: address on file Patient Identification confirmed using: Name, : Yes Telehealth method: video Patient verbally consented to treatment: Yes Patient verbally consented to billing insurance company: Yes Patient informed of any privacy concerns related to visit: Yes Minutes spent on Phone/Video with Pt.: 45 Coding Level of Care Code Tele Psytx 45 mins ([id number]) Diagnoses MDD (major depressive disorder), recurrent episode, mild F33.0 Time Spent (min) 45
== END 2023-07-20 11:42 | disposition home or self-care (01) ==
LOC: HO.HBST 11:07
PROVIDERS: PCP Family Medicine; Visit Provider Counselor Mental Health
DX: F33.0 Major depressive disorder, recurrent, mild (principal)
CPT/HCPCS: 90834

== ENCOUNTER → 2023-07-20 11:07 | Outpatient (BNVA) | payer OTHER, SELFPAY | PROVIDERS: PCP Family Medicine; Visit Provider Counselor Mental Health ==

== ENCOUNTER 2023-07-27 10:30 | Outpatient (AMB) | payer OTHER, SELFPAY ==
--- NOTE | 2023-07-27 12:11 | A.OFFWM_ITS ---
Intake Intake Visit Reasons: VIDEO PO LSG 05/12/21 Allergies Heparin Analogues [HEPARIN AGENTS] Allergy (Severe, Verified 05/24/23 10:30) patient states was told heparin caused a blood clot Penicillins [PENICILLINS] Allergy (Intermediate, Verified 05/24/23 10:30) [facility]ES [facility] Medical History (Updated 12/10/21 @ 13:23 by Alie Tinoco) Liver fibrosis Anemia Depression Hx pulmonary embolism PCOS (polycystic ovarian syndrome) COVID-19 vaccine series completed Jaw anomaly MDD (major depressive disorder), recurrent episode, mild Vitamin B12 deficiency Steatosis, liver Knee pain Sleep apnea with use of continuous positive airway pressure (CPAP) Morbid obesity Obesity Surgical History History of inferior vena caval filter placement Hx of excision of mass Hx of oral surgery History of mandibular surgery Hx of cholecystectomy Hx of colonoscopy Family History Mother No problems noted. Father Diabetes Hypertension Hyperlipidemia Sister No problems noted. Sister No problems noted. Sister No problems noted. Sister Acute Crohn's disease Sister No problems noted. Household Members: Spouse Housing: House Are you a primary managed care nurse to a significant other at home: No Do you presently have visiting nurse or other home services: No Alcohol intake: current Alcohol intake frequency: does not drink Patient Tobacco Use Status: Never used Tobacco Substance Use Type: Marijuana service: No Current occupational status: employed Behavioral [employer] Assessment Weight Management Therapy Therapy Notes Details completed EMDR session on memory of her mother's . SuDS zero, no discomfort. Assessment & Plan Assessment & Plan (1) MDD (major depressive disorder), recurrent episode, mild: Code(s): F33.0 - Major depressive disorder, recurrent, mild Plan Post operative patient seeking support and therapy due to depression, emotional eating, and coping skills. She should continue group therapy. She is also looking for EMDR therapy to help with healing previous trauma. Telehealth Telehealth Location of provider rendering services: practice address Location of patient: address on file Patient Identification confirmed using: Name, : Yes Telehealth method: video Patient verbally consented to treatment: Yes Patient verbally consented to billing insurance company: Yes Patient informed of any privacy concerns related to visit: Yes Minutes spent on Phone/Video with Pt.: 45 Coding Level of Care Code Tele Psytx 45 mins ([id number]) Diagnoses MDD (major depressive disorder), recurrent episode, mild F33.0 Time Spent (min) 45
== END 2023-07-27 12:10 | disposition home or self-care (01) ==
LOC: HO.HBST 11:17
PROVIDERS: PCP Family Medicine; Visit Provider Counselor Mental Health
DX: F33.0 Major depressive disorder, recurrent, mild (principal)
CPT/HCPCS: 90834

== ENCOUNTER → 2023-07-27 10:30 | Outpatient (BNVA) | payer OTHER, SELFPAY | PROVIDERS: PCP Family Medicine; Visit Provider Counselor Mental Health ==

== ENCOUNTER 2023-08-19 11:17 | Outpatient (AMB) | payer OTHER, SELFPAY ==
--- NOTE | 2023-08-19 11:22 | MHC.WMTHER ---
Intake Intake Visit Reasons: VIDEO PO LSG 05/12/21 Allergies Heparin Analogues [HEPARIN AGENTS] Allergy (Severe, Verified 05/24/23 10:30) patient states was told heparin caused a blood clot Penicillins [PENICILLINS] Allergy (Intermediate, Verified 05/24/23 10:30) [facility]ES [facility] Medical History (Updated 12/10/21 @ 13:23 by Alie Tinoco) Liver fibrosis Anemia Depression Hx pulmonary embolism PCOS (polycystic ovarian syndrome) COVID-19 vaccine series completed Jaw anomaly MDD (major depressive disorder), recurrent episode, mild Vitamin B12 deficiency Steatosis, liver Knee pain Sleep apnea with use of continuous positive airway pressure (CPAP) Morbid obesity Obesity Surgical History History of inferior vena caval filter placement Hx of excision of mass Hx of oral surgery History of mandibular surgery Hx of cholecystectomy Hx of colonoscopy Family History Mother No problems noted. Father Diabetes Hypertension Hyperlipidemia Sister No problems noted. Sister No problems noted. Sister No problems noted. Sister Acute Crohn's disease Sister No problems noted. Social History Household Members: Spouse Housing: House Are you a primary customer care agent to a significant other at home: No Do you presently have visiting nurse or other home services: No Alcohol intake: current Alcohol intake frequency: does not drink Patient Tobacco Use Status: Never used Tobacco Substance Use Type: Marijuana service: No Current occupational status: employed Behavioral [employer] Assessment Weight Management Therapy Therapy Notes Details EMDR on pet loss. Complete session, no issues. Patient had found herself grieving lately due to anniversary date. She reported doing well overall. She continues to workout and eat healthy. Assessment & Plan Assessment & Plan (1) MDD (major depressive disorder), recurrent episode, mild: Code(s): F33.0 - Major depressive disorder, recurrent, mild Plan Post operative patient seeking support and therapy due to depression, emotional eating, and coping skills. She should continue group therapy. She is also looking for EMDR therapy to help with healing previous trauma. Telehealth Telehealth Location of provider rendering services: other Location of patient: address on file Patient Identification confirmed using: Name, : Yes Telehealth method: video Patient verbally consented to treatment: Yes Patient verbally consented to billing insurance company: Yes Patient informed of any privacy concerns related to visit: Yes Minutes spent on Phone/Video with Pt.: 45 Coding Level of Care Code Tele Psytx 45 mins ([id number]) Diagnoses MDD (major depressive disorder), recurrent episode, mild F33.0 Time Spent (min) 45
== END 2023-08-19 11:22 | disposition home or self-care (01) ==
LOC: HO.HBST 11:17
PROVIDERS: PCP Family Medicine; Visit Provider Counselor Mental Health
DX: F33.0 Major depressive disorder, recurrent, mild (principal)
CPT/HCPCS: 90834

== ENCOUNTER → 2023-08-19 11:17 | Outpatient (BNVA) | payer OTHER, SELFPAY | PROVIDERS: PCP Family Medicine; Visit Provider Counselor Mental Health ==

== ENCOUNTER 2023-09-14 12:42 | Outpatient (AMB) | payer OTHER, SELFPAY ==
--- NOTE | 2023-09-14 14:21 | MHC.WMTHER ---
Intake Intake Visit Reasons: VIDEO PO LSG 05/12/21 Allergies Heparin Analogues [HEPARIN AGENTS] Allergy (Severe, Verified 05/24/23 10:30) patient states was told heparin caused a blood clot Penicillins [PENICILLINS] Allergy (Intermediate, Verified 05/24/23 10:30) HIVES [facility] Medical History (Updated 12/10/21 @ 13:23 by Alie Tinoco) Liver fibrosis Anemia Depression Hx pulmonary embolism PCOS (polycystic ovarian syndrome) COVID-19 vaccine series completed Jaw anomaly MDD (major depressive disorder), recurrent episode, mild Vitamin B12 deficiency Steatosis, liver Knee pain Sleep apnea with use of continuous positive airway pressure (CPAP) Morbid obesity Obesity Surgical History History of inferior vena caval filter placement Hx of excision of mass Hx of oral surgery History of mandibular surgery Hx of cholecystectomy Hx of colonoscopy Family History Mother No problems noted. Father Diabetes Hypertension Hyperlipidemia Sister No problems noted. Sister No problems noted. Sister No problems noted. Sister Acute Crohn's disease Sister No problems noted. Social History Household Members: Spouse Housing: House Are you a primary inspector health care facilities to a significant other at home: No Do you presently have visiting nurse or other home services: No Alcohol intake: current Alcohol intake frequency: does not drink Patient Tobacco Use Status: Never used Tobacco Substance Use Type: Marijuana service: No Current occupational status: employed Behavioral Health Assessment Weight Management Therapy Therapy Notes Details Pt talked about recent loss of someone from work. also struggled more emotionally from last EMDR thinking about that loss more that week but was also anniversary. Isabela discussed losses from her life, and what the coworkers passing meant to her. Assessment & Plan Assessment & Plan (1) MDD (major depressive disorder), recurrent episode, mild: Code(s): F33.0 - Major depressive disorder, recurrent, mild Plan Post operative patient seeking support and therapy due to depression, emotional eating, and coping skills. She should continue group therapy. She is also looking for EMDR therapy to help with healing previous trauma. Telehealth Telehealth Location of provider rendering services: other Location of patient: address on file Patient Identification confirmed using: Name, : Yes Telehealth method: video Patient verbally consented to treatment: Yes Patient verbally consented to billing insurance company: Yes Patient informed of any privacy concerns related to visit: Yes Minutes spent on Phone/Video with Pt.: 40 Coding Level of Care Code Tele Psytx 45 mins ([id number]) Diagnoses MDD (major depressive disorder), recurrent episode, mild F33.0 Time Spent (min) 40
== END 2023-09-14 14:10 | disposition home or self-care (01) ==
LOC: HO.HBST 12:42
PROVIDERS: PCP Family Medicine; Visit Provider Counselor Mental Health
DX: F33.0 Major depressive disorder, recurrent, mild (principal)
CPT/HCPCS: 90834

== ENCOUNTER → 2023-09-14 12:42 | Outpatient (BNVA) | payer OTHER, SELFPAY | PROVIDERS: PCP Family Medicine; Visit Provider Counselor Mental Health ==

== ENCOUNTER 2023-09-28 12:09 | Outpatient (AMB) | payer OTHER, SELFPAY ==
--- NOTE | 2023-10-03 10:29 | A.OFFWM_ITS ---
Intake Intake Visit Reasons: VIDEO PO LSG 05/12/21 Allergies Heparin Analogues [HEPARIN AGENTS] Allergy (Severe, Verified 05/24/23 10:30) patient states was told heparin caused a blood clot Penicillins [PENICILLINS] Allergy (Intermediate, Verified 05/24/23 10:30) HIVES ON [facility] OF [facility] Medical History (Updated 12/10/21 @ 13:23 by Alie Tinoco) Liver fibrosis Anemia Depression Hx pulmonary embolism PCOS (polycystic ovarian syndrome) COVID-19 vaccine series completed Jaw anomaly MDD (major depressive disorder), recurrent episode, mild Vitamin B12 deficiency Steatosis, liver Knee pain Sleep apnea with use of continuous positive airway pressure (CPAP) Morbid obesity Obesity Surgical History History of inferior vena caval filter placement Hx of excision of mass Hx of oral surgery History of mandibular surgery Hx of cholecystectomy Hx of colonoscopy Family History Mother No problems noted. Father Diabetes Hypertension Hyperlipidemia Sister No problems noted. Sister No problems noted. Sister No problems noted. Sister Acute Crohn's disease Sister No problems noted. Social History Household Members: Spouse Housing: House Are you a primary career discovery teacher to a significant other at home: No Do you presently have visiting nurse or other home services: No Alcohol intake: current Alcohol intake frequency: does not drink Patient Tobacco Use Status: Never used Tobacco Substance Use Type: Marijuana service: No Current occupational status: employed Behavioral Health Assessment Weight Management Therapy Therapy Notes Details Talked about recent losses in her life, how she is coping, and her health concerns about sister. Assessment & Plan Assessment & Plan (1) MDD (major depressive disorder), recurrent episode, mild: Code(s): F33.0 - Major depressive disorder, recurrent, mild Plan Post operative patient seeking support and therapy due to depression, emotional eating, and coping skills. She should continue group therapy. She is also looking for EMDR therapy to help with healing previous trauma. Telehealth Telehealth Location of provider rendering services: practice address Location of patient: address on file Patient Identification confirmed using: Name, : Yes Telehealth method: video Patient verbally consented to treatment: Yes Patient verbally consented to billing insurance company: Yes Patient informed of any privacy concerns related to visit: Yes Minutes spent on Phone/Video with Pt.: 45 Coding Level of Care Code Tele Psytx 45 mins ([id number]) Diagnoses MDD (major depressive disorder), recurrent episode, mild F33.0 Time Spent (min) 45
== END 2023-10-03 10:29 | disposition home or self-care (01) ==
PROVIDERS: PCP Family Medicine; Visit Provider Counselor Mental Health
DX: F33.0 Major depressive disorder, recurrent, mild (principal)
CPT/HCPCS: 90834

== ENCOUNTER → 2023-09-28 12:09 | Outpatient (BNVA) | payer OTHER, SELFPAY | PROVIDERS: PCP Family Medicine; Visit Provider Counselor Mental Health ==

== ENCOUNTER 2023-11-02 11:47 | Outpatient (AMB) | payer OTHER, SELFPAY ==
--- NOTE | 2024-04-03 15:48 | A.OFFWM_ITS ---
Intake Intake Visit Reasons: VIDEO PO LSG 05/12/21 Allergies Heparin Analogues [HEPARIN AGENTS] Allergy (Severe, Verified 05/24/23 10:30) patient states was told heparin caused a blood clot Penicillins [PENICILLINS] Allergy (Intermediate, Verified 05/24/23 10:30) [facility] Medical History (Updated 12/10/21 @ 13:23 by Alie Tinoco) Liver fibrosis Anemia Depression Hx pulmonary embolism PCOS (polycystic ovarian syndrome) COVID-19 vaccine series completed Jaw anomaly MDD (major depressive disorder), recurrent episode, mild Vitamin B12 deficiency Steatosis, liver Knee pain Sleep apnea with use of continuous positive airway pressure (CPAP) Morbid obesity Obesity Surgical History History of inferior vena caval filter placement Hx of excision of mass Hx of oral surgery History of mandibular surgery Hx of cholecystectomy Hx of colonoscopy Family History Mother No problems noted. Father Diabetes Hypertension Hyperlipidemia Sister No problems noted. Sister No problems noted. Sister No problems noted. Sister Acute Crohn's disease Sister No problems noted. Social History Household Members: Spouse Housing: House Are you a primary manager intensive care unit to a significant other at home: No Do you presently have visiting nurse or other home services: No Alcohol intake: current Alcohol intake frequency: does not drink Patient Tobacco Use Status: Never used Tobacco Substance Use Type: Marijuana service: No Current occupational status: employed [employer] Assessment Weight Management Therapy Therapy Notes Details Pt discussed how she has gotten back on track, working out, being mindful of what she is eating. All her reasons why she wants to continue working on her goals. Assessment & Plan Assessment & Plan (1) MDD (major depressive disorder), recurrent episode, mild: Code(s): F33.0 - Major depressive disorder, recurrent, mild Plan Post operative patient seeking support and therapy due to depression, emotional eating, and coping skills. She should continue group therapy. She is also looking for EMDR therapy to help with healing previous trauma. Telehealth Telehealth Telehealth Platform: Other (please specify) (zoom) Location of provider rendering services: other Location of patient: address on file Patient Identification confirmed using: Name, : Yes Telehealth method: video Patient verbally consented to treatment: Yes Patient verbally consented to billing insurance company: Yes Patient informed of any privacy concerns related to visit: Yes Minutes spent on Phone/Video with Pt.: 45 Coding Level of Care Code Tele Psytx 45 mins ([id number]) Diagnoses MDD (major depressive disorder), recurrent episode, mild F33.0 Time Spent (min) 45
== END 2023-11-02 12:30 | disposition home or self-care (01) ==
PROVIDERS: PCP Family Medicine; Visit Provider Counselor Mental Health
DX: F33.0 Major depressive disorder, recurrent, mild (principal)
CPT/HCPCS: 90834

== ENCOUNTER → 2023-11-02 11:47 | Outpatient (BNVA) | payer OTHER, SELFPAY | PROVIDERS: PCP Family Medicine; Visit Provider Counselor Mental Health ==

== ENCOUNTER 2024-01-25 10:39 | Outpatient (AMB) | payer OTHER, SELFPAY ==
--- NOTE | 2024-01-25 10:53 | MHC.WMTHER ---
Intake Intake Visit Reasons: (TV) PO LSG 05/12/21 Allergies Heparin Analogues [HEPARIN AGENTS] Allergy (Severe, Verified 05/24/23 10:30) patient states was told heparin caused a blood clot Penicillins [PENICILLINS] Allergy (Intermediate, Verified 05/24/23 10:30) HIVES [facility] Medical History (Updated 12/10/21 @ 13:23 by Alie Tinoco) Liver fibrosis Anemia Depression Hx pulmonary embolism PCOS (polycystic ovarian syndrome) COVID-19 vaccine series completed Jaw anomaly MDD (major depressive disorder), recurrent episode, mild Vitamin B12 deficiency Steatosis, liver Knee pain Sleep apnea with use of continuous positive airway pressure (CPAP) Morbid obesity Obesity Surgical History History of inferior vena caval filter placement Hx of excision of mass Hx of oral surgery History of mandibular surgery Hx of cholecystectomy Hx of colonoscopy Family History Mother No problems noted. Father Diabetes Hypertension Hyperlipidemia Sister No problems noted. Sister No problems noted. Sister No problems noted. Sister Acute Crohn's disease Sister No problems noted. Social History Household Members: Spouse Housing: House Are you a primary healthcare recruiter to a significant other at home: No Do you presently have visiting nurse or other home services: No Alcohol intake: current Alcohol intake frequency: does not drink Patient Tobacco Use Status: Never used Tobacco Substance Use Type: Marijuana service: No Current occupational status: employed Behavioral Health Assessment Weight Management Therapy Therapy Notes Details Pt is re-establishing, has been stable and would like to complete EMDR therapy. She has been doing well, working out, loosing weight and taking care of herself. Assessment & Plan Assessment & Plan (1) MDD (major depressive disorder), recurrent episode, mild: Code(s): F33.0 - Major depressive disorder, recurrent, mild Plan Post operative patient seeking support and therapy due to depression, emotional eating, and coping skills. She should continue group therapy. She is also looking for EMDR therapy to help with healing previous trauma. Coding Level of Care Code Tele Psytx 45 mins ([id number]) Diagnoses MDD (major depressive disorder), recurrent episode, mild F33.0 Time Spent (min) 45
== END 2024-01-25 10:53 | disposition home or self-care (01) ==
LOC: HO.HBST 10:39
PROVIDERS: PCP Family Medicine; Visit Provider Counselor Mental Health
DX: F33.0 Major depressive disorder, recurrent, mild (principal)
CPT/HCPCS: 90834

== ENCOUNTER → 2024-01-25 10:39 | Outpatient (BNVA) | payer OTHER, SELFPAY | PROVIDERS: PCP Family Medicine; Visit Provider Counselor Mental Health ==

== ENCOUNTER 2024-02-08 10:34 | Outpatient (AMB) | payer OTHER, SELFPAY ==
--- NOTE | 2024-02-08 11:04 | MHC.WMTHER ---
Intake Intake Visit Reasons: (TV) PO LSG 05/12/21 Allergies Heparin Analogues [HEPARIN AGENTS] Allergy (Severe, Verified 05/24/23 10:30) patient states was told heparin caused a blood clot Penicillins [PENICILLINS] Allergy (Intermediate, Verified 05/24/23 10:30) [facility]ES [facility] Medical History (Updated 12/10/21 @ 13:23 by Alie Tinoco) Liver fibrosis Anemia Depression Hx pulmonary embolism PCOS (polycystic ovarian syndrome) COVID-19 vaccine series completed Jaw anomaly MDD (major depressive disorder), recurrent episode, mild Vitamin B12 deficiency Steatosis, liver Knee pain Sleep apnea with use of continuous positive airway pressure (CPAP) Morbid obesity Obesity Surgical History History of inferior vena caval filter placement Hx of excision of mass Hx of oral surgery History of mandibular surgery Hx of cholecystectomy Hx of colonoscopy Family History Mother No problems noted. Father Diabetes Hypertension Hyperlipidemia Sister No problems noted. Sister No problems noted. Sister No problems noted. Sister Acute Crohn's disease Sister No problems noted. Social History Household Members: Spouse Housing: House Are you a primary health care marketing specialist to a significant other at home: No Do you presently have visiting nurse or other home services: No Alcohol intake: current Alcohol intake frequency: does not drink Patient Tobacco Use Status: Never used Tobacco Substance Use Type: Marijuana service: No Current occupational status: employed Behavioral Health Assessment Weight Management Therapy Therapy Notes Details Pt has been doing very well over the past several months. Depression, anxiety, and over eating, She has been working out, eating healthy and loosing weight. She would like to continue trauma work to complete all events on her list. Completed FLASH session today on the loss of her dad. Pt stated that she felt much better than with EMDR, less intense. Presenting Concerns Referral Source self Reason for referral depression, over eating Precipitating Event trauma Living Situation Current Living Situation Own At risk of losing current housing? No Satisfied with current living situation? Yes Comments Pt lives with her and their pets. Food/Weight/Diet History/Relationship with dieting weight loss surgery about two years ago here at [facility]. Assessment & Plan Assessment & Plan (1) MDD (major depressive disorder), recurrent episode, mild: Code(s): F33.0 - Major depressive disorder, recurrent, mild Plan Post operative patient seeking support and therapy due to depression, emotional eating, and coping skills. She should continue group therapy. She is also looking for EMDR therapy to help with healing previous trauma. Telehealth Telehealth Telehealth Platform: Other (please specify) (zoom) Location of provider rendering services: other Location of patient: address on file Patient Identification confirmed using: Name, : Yes Telehealth method: video Patient verbally consented to treatment: Yes Patient verbally consented to billing insurance company: Yes Patient informed of any privacy concerns related to visit: Yes Minutes spent on Phone/Video with Pt.: 45 Coding Level of Care Code Tele Psytx 45 mins ([id number]) Diagnoses MDD (major depressive disorder), recurrent episode, mild F33.0 Time Spent (min) 45
== END 2024-02-08 11:04 | disposition home or self-care (01) ==
LOC: HO.HBST 10:34
PROVIDERS: PCP Family Medicine; Visit Provider Counselor Mental Health
DX: F33.0 Major depressive disorder, recurrent, mild (principal)
CPT/HCPCS: 90834

== ENCOUNTER → 2024-02-08 10:34 | Outpatient (BNVA) | payer OTHER, SELFPAY | PROVIDERS: PCP Family Medicine; Visit Provider Counselor Mental Health ==

== ENCOUNTER 2024-02-15 15:47 | Outpatient (AMB) | payer OTHER, SELFPAY ==
--- NOTE | 2024-02-15 15:40 | A.OFFWM_ITS ---
Intake Intake Visit Reasons: (TV) PO LSG 05/12/21 Allergies Heparin Analogues [HEPARIN AGENTS] Allergy (Severe, Verified 05/24/23 10:30) patient states was told heparin caused a blood clot Penicillins [PENICILLINS] Allergy (Intermediate, Verified 05/24/23 10:30) [facility]ES [facility] Medical History (Updated 12/10/21 @ 13:23 by Alie Tinoco) Liver fibrosis Anemia Depression Hx pulmonary embolism PCOS (polycystic ovarian syndrome) COVID-19 vaccine series completed Jaw anomaly MDD (major depressive disorder), recurrent episode, mild Vitamin B12 deficiency Steatosis, liver Knee pain Sleep apnea with use of continuous positive airway pressure (CPAP) Morbid obesity Obesity Surgical History History of inferior vena caval filter placement Hx of excision of mass Hx of oral surgery History of mandibular surgery Hx of cholecystectomy Hx of colonoscopy Family History Mother No problems noted. Father Diabetes Hypertension Hyperlipidemia Sister No problems noted. Sister No problems noted. Sister No problems noted. Sister Acute Crohn's disease Sister No problems noted. Social History Household Members: Spouse Housing: House Are you a primary acute care nursing assistant to a significant other at home: No Do you presently have visiting nurse or other home services: No Alcohol intake: current Alcohol intake frequency: does not drink Patient Tobacco Use Status: Never used Tobacco Substance Use Type: Marijuana service: No Current occupational status: employed Behavioral Health Assessment Weight Management Therapy Therapy Notes Details FLASH session on loss of brother in law. Complete session. Next IVF memories. Assessment & Plan Assessment & Plan (1) MDD (major depressive disorder), recurrent episode, mild: Code(s): F33.0 - Major depressive disorder, recurrent, mild Plan Post operative patient seeking support and therapy due to depression, emotional eating, and coping skills. She should continue group therapy. She is also looking for EMDR therapy to help with healing previous trauma. Telehealth Telehealth Telehealth Platform: Other (please specify) (zoom) Location of provider rendering services: other Location of patient: address on file Patient Identification confirmed using: Name, : Yes Telehealth method: video Patient verbally consented to treatment: Yes Patient verbally consented to billing insurance company: Yes Patient informed of any privacy concerns related to visit: Yes Minutes spent on Phone/Video with Pt.: 45 Coding Level of Care Code Tele Psytx 45 mins ([id number]) Diagnoses MDD (major depressive disorder), recurrent episode, mild F33.0 Time Spent (min) 50
== END 2024-02-15 16:00 ==
PROVIDERS: PCP Family Medicine; Visit Provider Counselor Mental Health
DX: F33.0 Major depressive disorder, recurrent, mild (principal)
CPT/HCPCS: 90834

== ENCOUNTER → 2024-02-15 15:47 | Outpatient (BNVA) | payer OTHER, SELFPAY | PROVIDERS: PCP Family Medicine; Visit Provider Counselor Mental Health ==

== ENCOUNTER → 2024-02-27 14:46 | Outpatient (BNVA) | payer OTHER, SELFPAY | PROVIDERS: PCP Family Medicine; Visit Provider Counselor Mental Health ==

== ENCOUNTER 2024-03-12 08:49 | Outpatient (AMB) | payer OTHER, SELFPAY ==
--- NOTE | 2024-03-12 10:40 | A.OFFWM_ITS ---
Intake Intake Visit Reasons: (OV) PO LSG 05/12/21 Allergies Heparin Analogues [HEPARIN AGENTS] Allergy (Severe, Verified 05/24/23 10:30) patient states was told heparin caused a blood clot Penicillins [PENICILLINS] Allergy (Intermediate, Verified 05/24/23 10:30) [facility]ES [facility] Medical History (Updated 12/10/21 @ 13:23 by Alie Tinoco) Liver fibrosis Anemia Depression Hx pulmonary embolism PCOS (polycystic ovarian syndrome) COVID-19 vaccine series completed Jaw anomaly MDD (major depressive disorder), recurrent episode, mild Vitamin B12 deficiency Steatosis, liver Knee pain Sleep apnea with use of continuous positive airway pressure (CPAP) Morbid obesity Obesity Surgical History History of inferior vena caval filter placement Hx of excision of mass Hx of oral surgery History of mandibular surgery Hx of cholecystectomy Hx of colonoscopy Family History Mother No problems noted. Father Diabetes Hypertension Hyperlipidemia Sister No problems noted. Sister No problems noted. Sister No problems noted. Sister Acute Crohn's disease Sister No problems noted. Social History Household Members: Spouse Housing: House Are you a primary reproductive healthcare assistant to a significant other at home: No Do you presently have visiting nurse or other home services: No Alcohol intake: current Alcohol intake frequency: does not drink Patient Tobacco Use Status: Never used Tobacco Substance Use Type: Marijuana service: No Current occupational status: employed Behavioral Health Assessment Weight Management Therapy Therapy Notes Details FLASH and EMDR used for memory of IVF journey, second round getting the phone call it did not work. Emotional session. yesterday saw her MIL who brought up how heartbreakon she was for the not having kids which is the first time this had been spoken between the two of them. Pt stated that she had a really difficult day after that. She has talked about her infertility many times but this conversation hit her hard. Assessment & Plan Assessment & Plan (1) MDD (major depressive disorder), recurrent episode, mild: Code(s): F33.0 - Major depressive disorder, recurrent, mild Plan Post operative patient seeking support and therapy due to depression, emotional eating, and coping skills. She should continue group therapy. She is also looking for EMDR therapy to help with healing previous trauma. Coding Level of Care Code Tele Psytx >53 mins ([id number]) Diagnoses MDD (major depressive disorder), recurrent episode, mild F33.0 Time Spent (min) 55
== END 2024-03-12 10:39 | disposition home or self-care (01) ==
PROVIDERS: PCP Family Medicine; Visit Provider Counselor Mental Health
DX: F33.0 Major depressive disorder, recurrent, mild (principal)
CPT/HCPCS: 90837

== ENCOUNTER → 2024-03-12 08:49 | Outpatient (BNVA) | payer OTHER, SELFPAY | PROVIDERS: PCP Family Medicine; Visit Provider Counselor Mental Health ==